=== PATIENT | female | born 1965 | race Caucasian/White ===

== ENCOUNTER 2019-12-04 21:47 | Inpatient (IN) | payer OTHER ==
[2019-12-04 22:45] LABS: ALT (SGPT) 15 U/L (8-55); AST (SGOT) 19 U/L (5-34); Albumin 3.8 g/dL (3.5-5.0); Alkaline Phosphatase 226 U/L (40-110); Anion Gap 17 mmol/L (10-20); BUN (Urea Nitrogen) 47 mg/dL (9.8-20.1); Bilirubin, Total 0.5 mg/dL (0.2-1.2); Calc. Creatinine Clearance 0 mL/min (70-130); Calcium 8.5 mg/dL (7.8-10.44); Carbon Dioxide 19 mmol/L (22-29); Chloride 114 mmol/L (98-107); Estimated GFR-MDRD 28; Glucose 118 mg/dL (70-105); Potassium 5.3 mmol/L (3.5-5.1); Protein, Total 6.8 g/dL (6.0-8.3); Sodium 145 mmol/L (136-145)
[2019-12-04 22:46] LABS: #Basophils 0.1 thou/uL (0.0-0.2); #Eosinphils 0.1 thou/uL (0.0-0.7); #Monocytes 0.7 thou/uL (0.11-0.59); #Neutrophils 7.3 thou/uL (1.40-6.50); %Basophils 0.7 % (0.0-1.0); %Eosinophils 0.9 % (0.0-10.0); %Lymphocytes 11.1 % (21.0-51.0); %Monocytes 8.1 % (0.0-10.0); %Neutrophils 79.3 % (42.0-75.0); Anisocytosis SLIGHT = 6-15 cells (100X) (0-5/hpf); Hemoglobin 10.4 g/dL (12.0-16.0); MDiff Complete? YES; Mean Corpuscular HGB CONC 29.7 g/dL (32.0-36.0); Mean Corpuscular Hemoglobin 28.4 pg (27.0-31.0); Mean Corpuscular Volume 95.5 fL (78.0-98.0); Mean Platelet Volume 7.1 fL (7.4-10.4); Platelet Count 326 thou/uL (130-400); RBC Distribution Width 16.3 % (11.5-14.5); Red Blood Cell (RBC) Count 3.68 mill/uL (4.20-5.40); White Blood Cell (WBC) Count 9.2 thou/uL (4.8-10.8)
[2019-12-04] MEDS ORDERED: cefTRIAXone\\ROCEPHIN 2 GM VIAL ONE (23:33)
[2019-12-05] MEDS ORDERED: Dextrose 50% Abboject 50 ML SYRINGE SLOW IVP PRN (00:08)
[2019-12-05] MEDS ORDERED: Dextrose 5% in Water 1,000 ML IV PRN (00:08)
[2019-12-05] MEDS ORDERED: Ondansetron PF 4 MG/2 ML Vial IVP PRN (00:08)
[2019-12-05] MEDS ORDERED: Furosemide 100 MG/10 ML VIAL SLOW IVP SCH (00:30)
[2019-12-05] MEDS: Acetaminophen 325 MG TAB PO PRN ×2 (04:08→20:36)
[2019-12-05 04:53] LABS: ALT (SGPT) 14 U/L (8-55); AST (SGOT) 20 U/L (5-34); Albumin 3.4 g/dL (3.5-5.0); Alkaline Phosphatase 211 U/L (40-110); Anion Gap 15 mmol/L (10-20); BUN (Urea Nitrogen) 40 mg/dL (9.8-20.1); Bilirubin, Total 0.4 mg/dL (0.2-1.2); Calc. Creatinine Clearance 108 mL/min (70-130); Calcium 8.6 mg/dL (7.8-10.44); Carbon Dioxide 17 mmol/L (22-29); Chloride 115 mmol/L (98-107); Estimated GFR-MDRD 33; Globulin 3.2 g/dL (2.4-3.5); Glucose 87 mg/dL (70-105); Potassium 4.9 mmol/L (3.5-5.1); Protein, Total 6.6 g/dL (6.0-8.3); Sodium 142 mmol/L (136-145)
[2019-12-05 05:20] LABS: #Basophils 0.1 thou/uL (0.0-0.2); #Eosinphils 0.1 thou/uL (0.0-0.7); #Lymphocytes 1.4 thou/uL (1.20-3.40); #Monocytes 0.9 thou/uL (0.11-0.59); #Neutrophils 5.5 thou/uL (1.40-6.50); %Basophils 0.7 % (0.0-1.0); %Eosinophils 1.8 % (0.0-10.0); %Lymphocytes 17.1 % (21.0-51.0); %Monocytes 11.5 % (0.0-10.0); %Neutrophils 68.8 % (42.0-75.0); Hemoglobin 10.2 g/dL (12.0-16.0); Mean Corpuscular HGB CONC 29.9 g/dL (32.0-36.0); Mean Corpuscular Hemoglobin 28.7 pg (27.0-31.0); Mean Platelet Volume 7.4 fL (7.4-10.4); Platelet Count 306 thou/uL (130-400); RBC Distribution Width 16.5 % (11.5-14.5); Red Blood Cell (RBC) Count 3.55 mill/uL (4.20-5.40)
[2019-12-05] MEDS: Piperacillin/Tazobactam 3.375 GM in Sodium Chloride 0.9% 100 ML IVPB SCH ×3 (06:55→18:31)
[2019-12-05] MEDS ORDERED: Promethazine HCl 25 MG, Admixture Fee 1 EACH in Sodium Chloride 0.9% 50 ML IVPB SCH (07:00)
[2019-12-05 07:54] LABS: Bacteria/HPF None Seen HPF (None Seen); Bilirubin Negative (Negative); Blood, Urine Negative (Negative); Clarity Clear (Clear); Glucose, Urine (Dipstick) 50 mg/dL (Negative); Leukocyte Negative Leu/uL (Negative); Nitrite Negative (Negative); Protein, Urine (Dipstick) Negative (Neg-Trace); RBC/HPF None Seen HPF (0-3); Squamous Epithelial 0-3 HPF (0-3); Urobilinogen Normal mg/dL (Less than 2); WBC/HPF 0-3 HPF (0-3)
--- NOTE | 2019-12-05 07:55 | RAD ---
CHEST 1 VIEW: HISTORY: Shortness of breath. COMPARISON: Radiograph of same day. FINDINGS: Heart size is enlarged. Moderate right layering pleural effusion. Mild background pulmonary edema. No pneumothorax. IMPRESSION: Findings of mildly compensating congestive heart failure. POS: HOME
--- NOTE | 2019-12-05 08:14 | ULT ---
ULTRASOUND RIGHT LOWER EXTREMITY VENOUS DOPPLER: HISTORY: Swelling, redness, and pain. COMPARISON: None. FINDINGS: Real-time, holland scale, color Doppler, and spectral analysis of the right lower extremity venous syste m was performed. The common femoral, femoral proximal portion, greater saphenous and deep femoral vei n, as well as popliteal and posterior tibial veins were interrogated. There is moderate superficial soft tissue swelling. Normal flow, augmentation, and compression. IMPRESSION: No deep venous thrombosis. POS: HOME
[2019-12-05] MEDS ORDERED: Non-Formulary Item 1 EACH (Insulin Detemir 100 Units/Ml [Levemir] 50 UNIT) SC SCH (09:00)
[2019-12-05] MEDS: Enoxaparin Sodium 30 MG/0.3 ML SYRINGE SC SCH (09:28)
[2019-12-05] MEDS: FLUoxetine HCl 20 MG CAP PO SCH (09:28)
[2019-12-05] MEDS: Metoprolol Tartrate 25 MG TAB PO SCH ×2 (09:28→20:36)
--- NOTE | 2019-12-05 09:32 | HP ---
SOURCE OF THE HISTORY: From the patient and patient's daughter who was at the bedside and history is reliable. CHIEF COMPLAINT: "My mother has been having redness of the right leg with weeping for the last more than one week." HISTORY OF PRESENT ILLNESS: This is a 53-year-old morbidly obese female patient who has history of essential hypertension, diabetes mellitus, morbid obesity, and depression, and patient has been compliant with her medications. The patient never had any cardiovascular history in the past. The patient had diabetic left foot with osteomyelitis, for which the patient had resection of the toe, and subsequently, the wound involving the left foot has been completely healed. Otherwise, the patient had an angioplasty to the left lower extremity in the past because of peripheral artery disease. The patient has been having gradually worsening erythema involving the right lower extremity for more than a week associated with gradually worsening bilateral lower extremity edema associated with 6-pillow orthopnea. Subsequently, the patient started having significant weeping and superficial blisters involving the right lower extremity, and because of gradual worsening of these symptoms involving the right lower extremity, the patient's family has decided for the patient to come to the emergency department today. The patient's daughter noticed that the patient has been having gradually worsening edema involving the both lower extremities associated with a 6-pillow orthopnea and dyspnea at rest without any obvious chest pain, travel, or fever. The patient had evaluation in the emergency department, the patient has slightly elevated D-dimer and beta-natriuretic peptide. Otherwise, the patient has mild worsening of renal function. PAST MEDICAL HISTORY: 1. Hypertension. 2. Diabetes mellitus. 3. Depression. 4. Obesity. PAST SURGICAL HISTORY: 1. Left toe partial amputation. 2. Repair of the left meniscal tear. 3. Balloon angioplasty of the left lower extremity in the past. ALLERGIES: NONE. CURRENT MEDICATIONS: At home, please see the reconciliation sheet. SOCIAL HISTORY: Lives with her family, and the patient is bed-bound for the last one year. Otherwise, never had any history of tobacco abuse, alcohol abuse, or recreational drug abuse. FAMILY HISTORY: Significant for myocardial infarction, stroke, diabetes mellitus, and hypertension in her mother. Father had COPD. REVIEW OF SYSTEMS: As mentioned in the history of present illness. Apart from it, 14-point of review of systems has been conducted and not contributory. PHYSICAL EXAMINATION: GENERAL: Elderly female patient, lying on the stretcher comfortably, not appears to be in any cardiopulmonary distress. Mucous membranes are pale and mild moist. Acyanotic. Anicteric. No finger clubbing. The patient has bilateral lower extremity pitting edema, but no lymphadenopathy. HEAD: Atraumatic and normocephalic. ENT: Neck is supple. No jugular venous distention. No thyromegaly or carotid bruit. EYES: Extraocular movements are intact. Pupils are equal, round, reactive to light bilaterally. Accommodation reflex present. CHEST: Bilaterally symmetrical. Trachea is midline. Air entry is diminished at both bases with bilateral basilar respiratory rhonchi. No wheezing. CARDIOVASCULAR: Normal intensity of S1 and S2 without S3. No murmurs are appreciated. ABDOMEN: Soft without any distention. Nontender. No organomegaly. Bowel sounds normoactive. DIAMOND CLEAVER: The patient is alert, awake, oriented to time, place, person. Cranial nerves 2 through 12 are intact. No focal motor or sensory deficits. EXTREMITIES: The patient has a significant edema involving the both lower extremities, which is pitting, but otherwise the patient has boot to the left foot and distal left leg. The patient has significant erythema involving the right leg and dorsum of the right lower extremity with superficial fluid-filled blisters and significant weeping, but otherwise, the dorsalis pedis pulses were not palpable on both feet. LABORATORY DATA: WBC 9.2, hemoglobin 10.4, hematocrit 35.2, platelets 326. D-dimer 0.94. Sodium 145, potassium 5.3, chloride 114, bicarb 19, anion gap 17, BUN 47, creatinine 1.8, glucose 118, calcium 8.4, total bilirubin 0.4, AST 19, ALT 15, alkaline phosphatase 226. Troponin 0.020. BNP 271. Total protein 6.8, albumin 3.8, globulin 3.0. Chest x-ray reveals elevated right hemidiaphragm. Otherwise significant for pulmonary vascular congestion and cardiomegaly. ASSESSMENT: 1. Right lower extremity cellulitis. 2. Fluid overload. 3. Acute on possible stage 3 chronic kidney disease. 4. Possible undiagnosed obstructive sleep apnea. 5. Anemia. 6. Mild hyperkalemia. 7. Essential hypertension. 8. Diabetes mellitus. 9. Depression. 10. Morbid obesity. PLAN: The patient has cellulitis involving the right lower extremity, but no obvious evidence of sepsis. Keep the patient on intravenous vancomycin and Zosyn empirically, but otherwise, we will ask the Wound Care to evaluate the patient as the patient has significant weeping from the right lower extremity skin surface. The patient has signs and symptoms of fluid overload manifested by gradually worsening bilateral lower extremity pitting edema associated with orthopnea and currently dyspnea at rest. The patient is not having any respiratory failure or hypoxia at this point of time, but the patient's chest x-ray reveals a pulmonary vascular congestion consistent with fluid overload. The patient never had any cardiovascular history, but the patient has morbid obesity with significant snoring during sleep, and probably the patient has high chances of obstructive sleep apnea, which is not diagnosed leading to right heart failure. Obtain 2D echocardiogram. Keep the patient on fluid restriction to 1.5 L per day. Lasix 80 mg intravenously one dose now and monitor renal function tomorrow. Monitor strict input and output. Obtain kidney ultrasound as the patient has minimal worsening of renal function, but currently clinically the patient appears fluid overloaded, so we will give one dose of intravenous Lasix 80 mg and monitor renal function tomorrow. Resume home medications, but avoid Norvasc because of bilateral lower extremity edema and start the patient on beta shraddha for now as the patient cannot be a candidate for any EMMETT inhibitors or angiotensin receptor shraddha because of minimal worsening of renal function. Resume long-acting insulin and monitor the patient with a medium dose of lispro insulin sliding scale coverage. Job ID: [id number]
--- NOTE | 2019-12-05 11:48 | ULT ---
BILATERAL RENAL ULTRASOUND COMPLETE: HISTORY: Renal failure. COMPARISON: 12/05/2013. FINDINGS: Exam is significantly limited because of large body habitus and patient being unable to suspend respi ration. The right kidney is not adequately visualized. The left kidney measures 10.5 x 5.2 x 5.2 cm but is also poorly seen. No evidence for overt left-sided renal hydronephrosis. The bladder is emp ty. The patient does have a Gooden. IMPRESSION: 1. Nonvisualized right kidney. 2. Poorly seen left kidney, but no overt renal hydronephrosis. POS: [facility]
--- NOTE | 2019-12-05 19:12 | PDOC.HOSPP ---
- Subjective Encounter Date: 12/05/19 Encounter Time: 12:00 Subjective: The patient reports feeling better. STates that her right leg was weeping and extremely painful. She also stated that she was short of breath. She feels her abdomen is not as distended and is more soft The patient reports being in a wheelchair for the past 7 years. - Objective Vital Signs & Weight: Vital Signs (12 hours) Temp Pulse Pulse Resp BP BP Pulse Ox 12/05/19 15:52 97.9 F 61 22 H 136/67 93 L 12/05/19 11:57 70 126/78 12/05/19 11:33 97.9 F 70 20 167/80 H 93 L 12/05/19 09:26 97.6 F 84 20 128/78 92 L Pulse Ox 12/05/19 15:52 12/05/19 11:57 95 12/05/19 11:33 12/05/19 09:26 Weight Admit Weight 385 lb 11.2 oz Weight 385 lb 11.2 oz I&O: 12/04/19 12/05/19 12/06/19 06:59 06:59 06:59 Intake Total 750 1150 Output Total 1400 1600 Balance -650 -450 Result Diagrams: 12/05/19 04:05 12/05/19 04:05 Additional Labs: Accuchecks 12/05/19 16:45 POC Glucose 124 H Hospitalist ROS - Review of Systems Constitutional: denies: fever, chills - Medication Medications: Active Medications Generic Name Dose Route Start Last Admin Trade Name Freq PRN Reason Stop Dose Admin Acetaminophen 650 mg 12/05/19 00:08 12/05/19 04:08 Tylenol PO 650 mg Q4H PRN Administration Headache/Fever/Mild Pain (1-3) Cholecalciferol 1,000 units 12/05/19 09:00 12/05/19 09:28 Vitamin D3 PO 1,000 units DAILY BRITTANY Administration Enoxaparin Sodium 30 mg 12/05/19 09:00 12/05/19 09:28 Lovenox SC 30 mg 0900 BRITTANY Administration Fluoxetine HCl 40 mg 12/05/19 09:00 12/05/19 09:28 Prozac PO 40 mg DAILY BRITTANY Administration Piperacillin Sod/Tazobactam 100 mls @ 200 mls/hr 12/05/19 06:00 12/05/19 18: 31 Sod 3.375 gm/ Sodium Chloride IVPB 100 mls Q6HR BRITTANY Administration Metoprolol Tartrate 25 mg 12/05/19 09:00 12/05/19 09:28 Lopressor PO 25 mg BID BRITTANY Administration Ondansetron HCl 4 mg 12/05/19 00:08 12/05/19 06:08 Zofran IVP 4 mg Q6H PRN Administration Nausea/Vomiting Sodium Chloride 10 ml 12/05/19 09:00 12/05/19 09:29 Flush - Normal Saline IVF 10 ml Q12HR BRITTANY Administration - Exam General Appearance: NAD, awake alert Eye: PERRL, anicteric sclera ENT: normocephalic atraumatic Neck: no JVD Heart: RRR, no murmur, no gallops, no rubs Respiratory: CTAB, no wheezes, no rales, no ronchi Gastrointestinal: soft, non-tender Gastrointestinal - other findings: distended abdomen, slightly firm to palpation Extremities: 2+ LE edema Extremities - other findings: right leg erythemma, warmth, tenderness Skin: normal turgor, no lesions, no rashes Hosp A/P - Plan ECHO: EF 50-55%, mild MR, sclerotic aortic valve, mild TR Chest X ray: mild CHF This is a 53 year old female presenting with cellulitis and CHF exacerbation #Acute hypoxic respiratory failure secondary to CHF exacerbation #Acute Kidney Injury - was given 80 mg IV lasix. Will give an additional 40 mg. ECHO Shows normal Ef - creatinine improved to 1.6. - UA normal - wean oxygen saturation to 92% Cellulitis - continue IV vancomycin and zosyn for now. Will consider switching to ceftriaxone tomorrow - wound culture Hyperkalemia - resolved
[2019-12-05] MEDS ORDERED: Furosemide 40 MG/4 ML VIAL SLOW IVP SCH (19:15)
[2019-12-05] MEDS: Insulin Glargine 50 UNITS in Pre-Filled Syringe 1 EACH SC SCH (20:34)
[2019-12-05] MEDS: Atorvastatin Calcium 40 MG TAB PO SCH (20:36)
[2019-12-06] MEDS: Piperacillin/Tazobactam 3.375 GM in Sodium Chloride 0.9% 100 ML IVPB SCH ×3 (00:36→11:40)
[2019-12-06] MEDS: HYDROcodone/Acetaminophen 5/325 mg Tablet PO PRN ×3 (03:18→17:24)
[2019-12-06 05:16] LABS: Hemoglobin 10.2 g/dL (12.0-16.0); Mean Corpuscular HGB CONC 29.6 g/dL (32.0-36.0); Mean Corpuscular Volume 94.7 fL (78.0-98.0); Mean Platelet Volume 7.1 fL (7.4-10.4); Platelet Count 342 thou/uL (130-400); RBC Distribution Width 16.6 % (11.5-14.5); Red Blood Cell (RBC) Count 3.63 mill/uL (4.20-5.40); White Blood Cell (WBC) Count 9.5 thou/uL (4.8-10.8)
[2019-12-06 05:21] LABS: Anion Gap 14 mmol/L (10-20); BUN (Urea Nitrogen) 47 mg/dL (9.8-20.1); Calc. Creatinine Clearance 84 mL/min (70-130); Calcium 8.7 mg/dL (7.8-10.44); Carbon Dioxide 24 mmol/L (22-29); Chloride 110 mmol/L (98-107); Estimated GFR-MDRD 25; Glucose 116 mg/dL (70-105); Sodium 142 mmol/L (136-145)
[2019-12-06] MEDS ORDERED: Furosemide 40 MG/4 ML VIAL SLOW IVP SCH (06:00)
[2019-12-06] MEDS: Metoprolol Tartrate 25 MG TAB PO SCH ×2 (09:03→22:03)
[2019-12-06] MEDS: FLUoxetine HCl 20 MG CAP PO SCH (09:03)
[2019-12-06] MEDS: Enoxaparin Sodium 30 MG/0.3 ML SYRINGE SC SCH (09:12)
[2019-12-06] MEDS ORDERED: Empagliflozin 25 MG TAB PO SCH (10:45)
--- NOTE | 2019-12-06 16:47 | PDOC.HOSPP ---
- Subjective Encounter Date: 12/06/19 Encounter Time: 13:00 Subjective: THe patient reports improvement in her leg pain and swelling. She feels her abd is still more distended than her baseline, however She denies chest pain. Has some mild SOB - Objective Vital Signs & Weight: Vital Signs (12 hours) Temp Pulse Pulse Pulse Resp BP BP 12/06/19 15:48 97.4 F L 55 L 20 12/06/19 11:37 97.5 F L 57 L 22 H 12/06/19 09:00 65 64 156/73 H 134/76 12/06/19 07:58 97.5 F L 64 20 BP Pulse Ox Pulse Ox Pulse Ox 12/06/19 15:48 166/80 H 92 L 12/06/19 11:37 130/72 94 L 12/06/19 09:00 93 L 91 L 12/06/19 07:58 118/59 L 92 L Weight Admit Weight 385 lb 11.2 oz Weight 392 lb 9.6 oz I&O: 12/05/19 12/06/19 12/07/19 06:59 06:59 06:59 Intake Total 750 2691 Output Total 1400 1800 Balance -650 891 Result Diagrams: 12/06/19 04:28 12/06/19 04:28 Additional Labs: Accuchecks 12/06/19 12/05/19 12/05/19 06:21 21:00 16:45 POC Glucose 112 H 133 H 124 H Hospitalist ROS - Review of Systems Constitutional: denies: fever, chills - Medication Medications: Active Medications Generic Name Dose Route Start Last Admin Trade Name Chris PRN Reason Stop Dose Admin Acetaminophen 650 mg 12/05/19 00:08 12/05/19 20:36 Tylenol PO 650 mg Q4H PRN Administration Headache/Fever/Mild Pain (1-3) Hydrocodone Bitart/Acetaminophen 1 tab 12/05/19 00:08 12/06/19 09:11 [place] 5/325 PO 1 tab Q4H PRN Administration Moderate Pain (4-6) Atorvastatin Calcium 40 mg 12/05/19 21:00 12/05/19 20:36 Lipitor PO 40 mg QPM BRITTANY Administration Cholecalciferol 1,000 units 12/05/19 09:00 12/06/19 09:03 Vitamin D3 PO 1,000 units DAILY BRITTANY Administration Enoxaparin Sodium 30 mg 12/05/19 09:00 12/06/19 09:12 Lovenox SC 30 mg 0900 BRITTANY Administration Fluoxetine HCl 40 mg 12/05/19 09:00 12/06/19 09:03 Prozac PO 40 mg DAILY BRITTANY Administration Piperacillin Sod/Tazobactam 100 mls @ 200 mls/hr 12/05/19 06:00 12/06/19 11: 40 Sod 3.375 gm/ Sodium Chloride IVPB 100 mls Q6HR BRITTANY Administration Insulin Glargine 50 units/ 0.5 mls @ 0 mls/hr 12/05/19 21:00 12/05/19 20:34 Miscellaneous Medication SC Not Given HS BRITTANY Vancomycin HCl 2 gm/ Sodium 500 mls @ 250 mls/hr 12/06/19 03:00 12/06/19 04: 05 Chloride IVPB 500 mls 0300 BRITTANY Administration Metoprolol Tartrate 25 mg 12/05/19 09:00 12/06/19 09:03 Lopressor PO 25 mg BID BRITTANY Administration Ondansetron HCl 4 mg 12/05/19 00:08 12/05/19 06:08 Zofran IVP 4 mg Q6H PRN Administration Nausea/Vomiting Sodium Chloride 10 ml 12/05/19 09:00 12/06/19 09:06 Flush - Normal Saline IVF 10 ml Q12HR BRITTANY Administration - Exam General Appearance: NAD, awake alert General - other findings: morbidly obese Eye: anicteric sclera ENT: normocephalic atraumatic, no oropharyngeal lesions Neck: no JVD Heart: RRR, no murmur, no gallops, no rubs Respiratory: CTAB, no wheezes, no rales, no ronchi, no tachypnea Gastrointestinal: soft, non-tender, non-distended, normal bowel sounds Gastrointestinal - other findings: abd more soft, not as firm but distended Extremities: 2+ LE edema Extremities - other findings: right LE erythema with sig improvement, slightly tender Neurological: cranial nerve grossly intact, normal sensation to touch, no focal deficits, no new deficit Hosp A/P - Plan ECHO: EF 50-55%, mild MR, sclerotic aortic valve, mild TR Chest X ray: mild CHF Renal US: poorly seen left kidney. Nonvisualized right kidney. No hydronephrosis This is a 53 year old female presenting with cellulitis and CHF exacerbation #Acute hypoxic respiratory failure secondary to CHF exacerbation #Acute Kidney Injury - was given 80 mg IV lasix+ 40 mg this morning . ECHO Shows normal Ef - creatinine worsened to 2.0 - will hold additional lasix for now Cellulitis -switch antibiotics to doxycycline and levaquin Hyperkalemia - potassium up to 6.0. EKG ordered. Kayexelate ordered. Will repeat BMP Anemia - Hb 10, check folate/B12 tomorrow
[2019-12-06 17:01] LABS: Anion Gap 17 mmol/L (10-20); BUN (Urea Nitrogen) 48 mg/dL (9.8-20.1); Calc. Creatinine Clearance 85 mL/min (70-130); Calcium 8.3 mg/dL (7.8-10.44); Carbon Dioxide 17 mmol/L (22-29); Chloride 111 mmol/L (98-107); Estimated GFR-MDRD 24; Glucose 182 mg/dL (70-105); Potassium 4.8 mmol/L (3.5-5.1); Sodium 140 mmol/L (136-145)
[2019-12-06] MEDS: HumaLOG 300 UNITS/3 ML VIAL SC PRN (17:39)
[2019-12-06] MEDS: Doxycycline 100 MG CAP PO SCH (22:02)
[2019-12-06] MEDS: Atorvastatin Calcium 40 MG TAB PO SCH (22:02)
[2019-12-06] MEDS: Amoxicillin/Potassium Clav 875 MG TAB PO SCH (22:02)
[2019-12-06] MEDS: Insulin Glargine 50 UNITS in Pre-Filled Syringe 1 EACH SC SCH (22:03)
[2019-12-07] MEDS: HYDROcodone/Acetaminophen 5/325 mg Tablet PO PRN ×3 (01:28→13:34)
[2019-12-07 06:28] LABS: Anion Gap 14 mmol/L (10-20); BUN (Urea Nitrogen) 52 mg/dL (9.8-20.1); Calc. Creatinine Clearance 90 mL/min (70-130); Calcium 8.5 mg/dL (7.8-10.44); Carbon Dioxide 21 mmol/L (22-29); Chloride 110 mmol/L (98-107); Estimated GFR-MDRD 26; Glucose 118 mg/dL (70-105); Potassium 4.5 mmol/L (3.5-5.1); Sodium 140 mmol/L (136-145)
[2019-12-07 07:03] LABS: Hemoglobin 10.6 g/dL (12.0-16.0); Mean Corpuscular HGB CONC 28.3 g/dL (32.0-36.0); Mean Corpuscular Hemoglobin 27.2 pg (27.0-31.0); Mean Platelet Volume 7.4 fL (7.4-10.4); Platelet Count 348 thou/uL (130-400); RBC Distribution Width 16.2 % (11.5-14.5); Red Blood Cell (RBC) Count 3.92 mill/uL (4.20-5.40); White Blood Cell (WBC) Count 8.3 thou/uL (4.8-10.8)
[2019-12-07] MEDS: Metoprolol Tartrate 25 MG TAB PO SCH ×2 (08:34→22:12)
[2019-12-07] MEDS: FLUoxetine HCl 20 MG CAP PO SCH (08:35)
[2019-12-07] MEDS: Amoxicillin/Potassium Clav 875 MG TAB PO SCH ×2 (08:35→22:12)
[2019-12-07] MEDS: Enoxaparin Sodium 30 MG/0.3 ML SYRINGE SC SCH (08:35)
[2019-12-07] MEDS: Folic Acid 1 MG TAB PO SCH (08:35)
[2019-12-07] MEDS: Doxycycline 100 MG CAP PO SCH ×2 (08:35→22:12)
[2019-12-07] MEDS ORDERED: Empagliflozin 25 MG TAB PO SCH (09:00)
[2019-12-07] MEDS ORDERED: Racepinephrine 2.25% 0.5 ML NEB NEB SCH (09:45)
--- NOTE | 2019-12-07 16:53 | RAD ---
Chest one view HISTORY: Dyspnea. Pleural effusion. COMPARISON: 12/04/2019. FINDINGS: Vertex silhouette remains magnified and enlarged. Pulmonary vasculature is engorged with wi despread reticulonodular interstitial prominence in patchy bilateral perihilar and bibasilar infiltrates, right greater than left. Blunting of the right lateral costophrenic angle with the appea salma of pleural fluid is similar to the previous exam. No lobar consolidation or evidence of pneumothorax. IMPRESSION : Small amount right pleural fluid, pulmonary edema, and other findings are stable.
--- NOTE | 2019-12-07 18:31 | PDOC.HOSPP ---
- Subjective Encounter Date: 12/07/19 Encounter Time: 10:00 Subjective: The patient is still SOB. She reports hearing a wheeze, noted to be coming more from her neck. Patient denies history of asthma, COPD. Denies history of KEREN, she does snore at night, but doesn't stop breathing. - Objective Vital Signs & Weight: Vital Signs (12 hours) Temp Pulse Pulse Resp BP BP BP 12/07/19 15:40 96.4 F L 58 L 20 134/83 12/07/19 13:33 97.6 F 12/07/19 12:00 95.9 F L 61 20 130/86 12/07/19 11:42 60 168/103 H 130/86 12/07/19 10:26 51 L 16 12/07/19 09:45 174/111 H 12/07/19 08:00 97.5 F L 59 L 14 195/108 H Pulse Ox 12/07/19 15:40 94 L 12/07/19 13:33 12/07/19 12:00 95 12/07/19 11:42 12/07/19 10:26 12/07/19 09:45 92 L 12/07/19 08:00 95 Weight Admit Weight 385 lb 11.2 oz Weight 391 lb 12.8 oz I&O: 12/06/19 12/07/19 12/08/19 06:59 06:59 06:59 Intake Total 2691 1310 420 Output Total 1800 300 150 Balance 891 1010 270 Result Diagrams: 12/07/19 05:36 12/07/19 05:37 Additional Labs: Accuchecks 12/07/19 12/07/19 12/07/19 17:40 11:05 05:41 POC Glucose 142 H 135 H 121 H 12/06/19 21:29 POC Glucose 165 H Hospitalist ROS - Review of Systems Constitutional: denies: fever, chills - Medication Medications: Active Medications Generic Name Dose Route Start Last Admin Trade Name Freq PRN Reason Stop Dose Admin Acetaminophen 650 mg 12/05/19 00:08 12/05/19 20:36 Tylenol PO 650 mg Q4H PRN Administration Headache/Fever/Mild Pain (1-3) Hydrocodone Bitart/Acetaminophen 1 tab 12/05/19 00:08 12/07/19 13:34 [place] 5/325 PO 1 tab Q4H PRN Administration Moderate Pain (4-6) Amoxicillin/Clavulanate Potassium 875 mg 12/06/19 21:00 12/07/19 08:35 Augmentin PO 875 mg Q12HR [facility] Administration Atorvastatin Calcium 40 mg 12/05/19 21:00 12/06/19 22:02 Lipitor PO 40 mg QPM BRITTANY Administration Cholecalciferol 1,000 units 12/05/19 09:00 12/07/19 08:35 Vitamin D3 PO 1,000 units DAILY BRITTANY Administration Doxycycline Hyclate 100 mg 12/06/19 21:00 12/07/19 08:35 Vibramycin PO 100 mg BID [facility] Administration Enoxaparin Sodium 30 mg 12/05/19 09:00 12/07/19 08:35 Lovenox SC 30 mg 0900 [facility] Administration Fluoxetine HCl 40 mg 12/05/19 09:00 12/07/19 08:35 Prozac PO 40 mg DAILY BRITTANY Administration Folic Acid 1 mg 12/07/19 09:00 12/07/19 08:35 Folvite PO 1 mg DAILY BRITTANY Administration Insulin Glargine 50 units/ 0.5 mls @ 0 mls/hr 12/05/19 21:00 12/06/19 22:03 Miscellaneous Medication SC 0.5 mls HS [facility] Administration Insulin Human Lispro 0 units 12/05/19 00:08 12/06/19 17:39 Humalog SC 2 units .MODERATE SLIDING SC PRN Administration Moderate Correctional Scale Metoprolol Tartrate 25 mg 12/05/19 09:00 12/07/19 08:34 Lopressor PO 25 mg BID BRITTANY Administration Ondansetron HCl 4 mg 12/05/19 00:08 12/05/19 06:08 Zofran IVP 4 mg Q6H PRN Administration Nausea/Vomiting Sodium Chloride 10 ml 12/05/19 09:00 12/07/19 08:36 Flush - Normal Saline IVF 10 ml Q12HR [facility] Administration - Exam General Appearance: NAD, awake alert General - other findings: morbidly obese Eye: PERRL, anicteric sclera ENT: normocephalic atraumatic, no oropharyngeal lesions ENT - other findings: expiratory wheezing heard Neck: no JVD Heart: RRR, no murmur, no gallops, no rubs Respiratory: CTAB, no wheezes, no rales Respiratory - other findings: pt using pursed lip breathing Gastrointestinal: soft, non-tender, non-distended, normal bowel sounds Extremities: no cyanosis, no clubbing Extremities - other findings: right lower extremity erythema, not warm, mildly tender Skin: normal turgor, no lesions, no rashes Neurological: cranial nerve grossly intact, normal sensation to touch, no focal deficits, no new deficit Musculoskeletal: normal tone, normal strength, no muscle wasting Hosp A/P - Plan ECHO: EF 50-55%, mild MR, sclerotic aortic valve, mild TR Chest X ray: mild CHF Renal US: poorly seen left kidney. Nonvisualized right kidney. No hydronephrosis This is a 53 year old female presenting with cellulitis, pleural effusions #Acute hypoxic respiratory failure secondary to right sided pleural effusion - was given 80 mg IV lasix+ 40 mg initially. Further lasix held due to HERNESTO. ECHO Shows normal Ef - CXR shows moderate right pleural effusion 12/06. Creatinine improved to 1.98 holding lasix but given she is still hypoxic will order lower dose of 20 mg. Consult pulmonary for thoracentesis #Expiratory stridor - CT neck done today shows per radiology prevertebral soft tissue swelling extensive. There is concern for infection. Final report pending - will obtain ENT consult - continue augmentin Cellulitis -Was on IV vancomycin and zosyn with significant improvement in erythema and swelling - wound culture shows enterococcus. Sensitivites pending - continue doxycycyline and augmentin for now #Acute Kidney Injury - initially creatinine improved with lasix, but then worsened. Improved again to 1.98. UA normal. Renal US shows no hydronephrosis - will continue to monitor, trial of another dose of IV lasix Hyperkalemia -resolved after kayexelate and holding further lasix Folate deficiency Anemia - Hb 10, folate level 5. - started folate supplementeation Dispo: pulm and ENT consult Code status: full code
[2019-12-07] MEDS ORDERED: Furosemide 20 MG/2 ML VIAL SLOW IVP SCH (18:45)
[2019-12-07] MEDS: Albuterol Sulfate 1.25 MG/3 ML NEB NEB PRN (19:29)
--- NOTE | 2019-12-07 21:52 | CT ---
EXAM: NONCONTRAST SOFT TISSUE NECK CT: 12/07/19 HISTORY: Expiratory stridor. Evaluate for obstruction. Shortness of breath. Patient feels like something is ca ught in her throat. COMPARISON: None. FINDINGS: Limited evaluation due to lack of IV contrast. Visualized orbits and brain parenchyma do not demonstr ate an acute abnormality. Mucous retention cyst in the right maxillary sinus. Limited evaluation of the alimentary canal by the lack of IV contrast administration. No obvious mass es in the oral cavity. Midline fatty raphae of the tongue appears to be preserved. Epiglottis has a n ormal caliber. Pre-epiglottic fat is preserved. There is marked edema and fluid involving the prevertebral space. This edema starts at the base of th e skull and extends inferiorly to the C5 level. No obvious gas is appreciated. Grossly, the great vessels of the neck appear to be symmetric. There is medial deviation of both inte rnal carotid arteries with mass effect upon the posterior hypopharynx. No evidence of lymphadenopathy by size criteria. Symmetric attenuation of the parotid and submandibular glands. Mildly heterogeneous thyroid gland. Upper mediastinum does not demonstrate an acute abnormality. Bilateral pleural effusion, right greate r than left. Patchy opacities in the lung parenchyma which may represent edema or infiltrate. There i s diffuse edema involving the soft tissue structures suggesting possible anasarca. There is narrowing of the hypopharynx and supraglottic airway. Cervical spine vertebral body heights appear to be main tained. No obvious fractures. There is grade I anterolisthesis of C3 upon C4 and C4 upon C5. There ar e varying degrees of central canal stenosis and foraminal narrowing due to degenerative change. IMPRESSION: Marked prevertebral soft tissue swelling without obvious gas/air. The possibility of a developing inf ected fluid collection cannot be excluded. There does appear to be narrowing of the hypopharynx and s upraglottic airway secondary to the aforementioned prevertebral soft tissue swelling. ENT consultatio n is recommended. Results of the findings were conveyed to Dr. Kate via [employer] connect 12/07/19 at 5:1 8 p.m. Code CR POS: PPP
[2019-12-07] MEDS: Insulin Glargine 50 UNITS in Pre-Filled Syringe 1 EACH SC SCH (22:11)
[2019-12-07] MEDS: Atorvastatin Calcium 40 MG TAB PO SCH (22:12)
[2019-12-08] MEDS: HYDROcodone/Acetaminophen 5/325 mg Tablet PO PRN ×4 (02:26→21:20)
[2019-12-08 06:07] LABS: Anion Gap 14 mmol/L (10-20); BUN (Urea Nitrogen) 50 mg/dL (9.8-20.1); Calc. Creatinine Clearance 102 mL/min (70-130); Calcium 8.5 mg/dL (7.8-10.44); Carbon Dioxide 21 mmol/L (22-29); Chloride 110 mmol/L (98-107); Estimated GFR-MDRD 30; Glucose 123 mg/dL (70-105); Magnesium 2.3 mg/dL (1.6-2.6); Potassium 4.1 mmol/L (3.5-5.1); Sodium 141 mmol/L (136-145)
[2019-12-08] MEDS: Enoxaparin Sodium 30 MG/0.3 ML SYRINGE SC SCH (09:22)
[2019-12-08] MEDS: Amoxicillin/Potassium Clav 875 MG TAB PO SCH ×2 (09:23→21:20)
[2019-12-08] MEDS: Doxycycline 100 MG CAP PO SCH ×2 (09:23→21:20)
[2019-12-08] MEDS: FLUoxetine HCl 20 MG CAP PO SCH (09:23)
[2019-12-08] MEDS: Folic Acid 1 MG TAB PO SCH (09:23)
[2019-12-08] MEDS: Metoprolol Tartrate 25 MG TAB PO SCH ×2 (09:25→21:26)
--- NOTE | 2019-12-08 09:59 | RAD ---
Exam: Chest one view HISTORY:Reevaluate pleural effusion Comparison: 12/07/2019 FINDINGS: Cardiac silhouette:Cardiomegaly Aorta: Unremarkable Pulmonary vessels: Normal Costophrenic angles: Persistent right-sided pleural effusion LUNGS: Persistent parenchymal changes in the right lung Pneumothorax: None Osseous abnormalities: None IMPRESSION: No significant interval change. Stable pleural and parenchymal changes in the right hemit horax.
[2019-12-08] MEDS: Albuterol Sulfate 1.25 MG/3 ML NEB NEB PRN (10:18)
[2019-12-08] MEDS ORDERED: Furosemide 20 MG/2 ML VIAL SLOW IVP SCH (10:30)
[2019-12-08] MEDS: HumaLOG 300 UNITS/3 ML VIAL SC PRN ×2 (11:30→17:37)
--- NOTE | 2019-12-08 16:05 | PQF ---
JUNITO MARTINEZ, [facility] [id number] CLINICAL DOCUMENTATION IMPROVEMENT CLARIFICATION FORM: ICD-10 Updated PLEASE DO AN ADDENDUM TO THE PROGRESS NOTE WITH ANY DOCUMENTATION UPDATES OR ADDITIONS AND CARRY THROUGH TO DC SUMMARY. THANK YOU. DATE: 12/08/2019 ATTN:DR. FLORES Please exercise your independent, professional judgment in responding to the clarification form. Clinical indicators are provided on the bottom of this form for your review. Please check appropriate box(s): ACUTE CONGESTIVE HEART FAILURE: B. TYPE [ ] Systolic / HFrEF [ X ] Diastolic / HFpEF [ ] Combined Systolic / Diastolic [ ] Hypertensive Kidney Disease [ ] Other diagnosis [ ] Unable to determine In addition, please specify: Present on Admission (POA): [ X ] Yes [ ] No [ ] Unable to determine For continuity of documentation, please document condition throughout progress notes and discharge summary. Thank You. CLINICAL INDICATORS - SIGNS / SYMPTOMS / LABS / RESULTS AND LOCATION IN EMR 12/03 BNP 271.2 12/03 CXR : FINDINGS OF MILDLY COMPENSATING CONGESTIVE HEART FAILURE 12/04 H&P (ACHANTA) THE PATIENT HAS SIGNS AND SYMPTOMS OF FLUID OVERLOAD MANIFESTED BY GRADUALLY WORSENING BILATERAL LOWER EXTREMITY PITTING EDEMA ASSOCIATED WITH ORTHOPNEA AND CURRENTLY DYSPNEA AT REST. 12/04 ECHO : EF IS VISUALLY ESTIMATED AT 50-55 %, MITRAL REGURGITATION IS PRESENT , THE AORTIC VALVE IS SCLEROTIC, MILD TRICUSPID REGURGITATION. 12/04, 12/05 PN (TRAVIS) ACUTE HYPOXIC RESPIRATORY FAILURE SECONDARY TO CHF EXACERBATION 12/06 PN (TRAVIS) ACUTE HYPOXIC RESPIRATORY FAILURE SECONDARY TO RT SIDE PLEURAL EFFUSION. RISK: DX PLEURAL EFFUSION, ACUTE HYPOXIC RESP FAILURE (PN/TRAVIS) 12/06 TREATMENT SUPPLEMENTAL OXYGEN (12/04 - PRESENT) LASIX IV (12/06, 12/07) THANK YOU! ADELINE (This form is maintained as a part of the permanent medical record) 2014 [email or web address]. All Rights Reserved [email or web address] HOSPITALMariah
--- NOTE | 2019-12-08 17:54 | PDOC.HOSPP ---
- Subjective Encounter Date: 12/08/19 Encounter Time: 16:00 Subjective: THe patient is doing slightly better. She feels less SOB. She reports abd distension has improved some. No significant pain on RLE - Objective Vital Signs & Weight: Vital Signs (12 hours) Temp Pulse Pulse Resp BP BP Pulse Ox 12/08/19 17:40 97.9 F 12/08/19 15:06 96.6 F L 57 L 18 133/63 97 12/08/19 14:04 58 L 176/81 H 12/08/19 12:40 97.3 F L 12/08/19 11:35 96.0 F L 59 L 20 144/63 H 95 12/08/19 07:27 96.6 F L 49 L 14 123/63 96 Weight Admit Weight 385 lb 11.2 oz Weight 390 lb 4.8 oz I&O: 12/07/19 12/08/19 12/09/19 06:59 06:59 06:59 Intake Total 1310 500 270 Output Total 300 1100 275 Balance 1010 -600 -5 Result Diagrams: 12/07/19 05:36 12/08/19 05:36 Additional Labs: Accuchecks 12/08/19 12/08/19 12/08/19 16:50 10:27 05:58 POC Glucose 175 H 159 H 121 H 12/07/19 19:56 POC Glucose 176 H Hospitalist ROS - Review of Systems Constitutional: denies: fever, chills - Medication Medications: Active Medications Generic Name Dose Route Start Last Admin Trade Name Freq PRN Reason Stop Dose Admin Acetaminophen 650 mg 12/05/19 00:08 12/05/19 20:36 Tylenol PO 650 mg Q4H PRN Administration Headache/Fever/Mild Pain (1-3) Hydrocodone Bitart/Acetaminophen 1 tab 12/05/19 00:08 12/08/19 17:36 Burr 5/325 PO 1 tab Q4H PRN Administration Moderate Pain (4-6) Albuterol Sulfate 1.25 mg 12/07/19 15:55 12/08/19 10:18 Albuterol Sulfate NEB 1.25 mg [id number] PRN Administration Wheezing Amoxicillin/Clavulanate Potassium 875 mg 12/06/19 21:00 12/08/19 09:23 Augmentin PO 875 mg Q12HR BRITTANY Administration Atorvastatin Calcium 40 mg 12/05/19 21:00 12/07/19 22:12 Lipitor PO 40 mg QPM BRITTANY Administration Cholecalciferol 1,000 units 12/05/19 09:00 12/08/19 09:23 Vitamin D3 PO 1,000 units DAILY BRITTANY Administration Doxycycline Hyclate 100 mg 12/06/19 21:00 12/08/19 09:23 Vibramycin PO 100 mg BID BRITTANY Administration Fluoxetine HCl 40 mg 12/05/19 09:00 12/08/19 09:23 Prozac PO 40 mg DAILY BRITTANY Administration Folic Acid 1 mg 12/07/19 09:00 12/08/19 09:23 Folvite PO 1 mg DAILY BRITTANY Administration Insulin Glargine 50 units/ 0.5 mls @ 0 mls/hr 12/05/19 21:00 12/07/19 22:11 Miscellaneous Medication SC 0.5 mls HS BRITTANY Administration Insulin Human Lispro 0 units 12/05/19 00:08 12/08/19 17:37 Humalog SC 2 units .MODERATE SLIDING SC PRN Administration Moderate Correctional Scale Metoprolol Tartrate 25 mg 12/05/19 09:00 12/08/19 09:25 Lopressor PO Not Given BID [facility] Ondansetron HCl 4 mg 12/05/19 00:08 12/05/19 06:08 Zofran IVP 4 mg Q6H PRN Administration Nausea/Vomiting Sodium Chloride 10 ml 12/05/19 09:00 12/08/19 09:22 Flush - Normal Saline IVF 10 ml Q12HR BRITTANY Administration - Exam General Appearance: NAD, awake alert Eye: PERRL, anicteric sclera ENT: normocephalic atraumatic, no oropharyngeal lesions ENT - other findings: exp stridor improved some Neck: no JVD Heart: RRR, no murmur, no gallops, no rubs Respiratory: CTAB, no wheezes, no rales, no ronchi Gastrointestinal: soft, non-tender Gastrointestinal - other findings: morbidly obese. Stretch arriaga on skin. Not as firm Extremities: no cyanosis, 2+ LE edema Extremities - other findings: erythema on RLE, not warm, nontender Neurological: cranial nerve grossly intact, normal sensation to touch, no focal deficits, no new deficit Hosp A/P - Plan ECHO: EF 50-55%, mild MR, sclerotic aortic valve, mild TR Chest X ray: mild CHF Renal US: poorly seen left kidney. Nonvisualized right kidney. No hydronephrosis This is a 53 year old female presenting with cellulitis, pleural effusions #Acute hypoxic respiratory failure secondary to right sided pleural effusion - was given 80 mg IV lasix+ 40 mg initially. ECHO Shows normal Ef - CXR shows moderate right pleural effusion 12/06. Creatinine improved to 1.98 holding lasix, but resumed 12/06 given persistent effusion - gave 20 mg IV lasix this am, will order additional 40 mg - repeat xray tomorrow - pulm consulted, will not do thoracentesis at this time #Expiratory stridor - CT neck done today shows per radiology prevertebral soft tissue swelling extensive. There is concern for infection. Final report pending - ENT evaluated patient and did NPL. NO pathology noted per ENT Cellulitis -Was on IV vancomycin and zosyn with significant improvement in erythema and swelling - wound culture shows enterococcus. Sensitivites pending - continue doxycycyline and augmentin day 4 of antibiotics #Acute Kidney Injury - improving to 1.7 after some IV lasix. Will give additional 40 mg. REpeat BMP afterwards Hyperkalemia -resolved after kayexelate and holding further lasix Folate deficiency Anemia - Hb 10, folate level 5. - started folate supplementeation Dispo: pending improvement in hypoxia Code status: full code
[2019-12-08] MEDS ORDERED: Furosemide 40 MG/4 ML VIAL SLOW IVP SCH (18:00)
--- NOTE | 2019-12-08 19:30 | CON ---
DATE OF CONSULTATION: 12/08/2019 HISTORY OF PRESENT ILLNESS: Annabel Davila is a 53-year-old female. She is 5 feet 4 inches and 390 pounds. She presented with complaints of right leg swelling and redness. I was consulted for an abnormal x-ray. She has had wheezing, she says for 2 weeks. She has no history of asthma. 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 She is bed bound, does not ambulate. SOCIAL HISTORY: She is a nonsmoker and nondrinker. FAMILY HISTORY: Negative for lung disease in an early age. Father did have COPD. There is a history of vascular disease, diabetes, and hypertension. REVIEW OF SYSTEMS: Otherwise negative. PHYSICAL EXAMINATION: GENERAL: She is in no distress. She does have inspiratory and expiratory noise consistent with an upper airway abnormality. She is extremely obese. VITAL SIGNS: She is afebrile. Heart rate is 59, respiratory rate is 20, oximetry is 95% on 2 L, and blood pressure is 144/63. CHEST: As mentioned, she is not stridorous, but she makes noise on inspiration and expiration that is consistent with narrowing of her upper airway. LUNGS: Clear. HEART: Regular rhythm. ABDOMEN: Soft. EXTREMITIES: Erythema of right lower extremity is still present, but she says it is improving. LABORATORY DATA: White count 8.3, hemoglobin 10.6, and platelets 348. Sodium 141, potassium 4.1, chloride 110, bicarb 21, BUN 50, and creatinine 1.74. The creatinine was 2.[address] Neck CT shows paraspinous inflammation. IMPRESSION AND PLAN: Inspiratory and expiratory noise created by paraspinous inflammation that has led to narrowing of already narrow upper airway secondary to her obesity. I would wonder ,given her cellulitis, if she did not have a staphylococcal paraspinous abscess,.She is on antimicrobial therapy.. Infectious Disease input would be reasonable. Her obesity may preclude magnetic resonance imaging. Chest radiograph is hazy at the right base, but she is so obese, so good radiograph cannot be performed. I do not have a needle long enough to get into her pleural space at this point, and I am not convinced that she has a pleural effusion. I would simply recommend repeating a chest x-ray in 1 to 2 months. The paraspinous issues and the cellulitis in her leg need to be addressed. Please re-consult this if indicated. Her bedridden state makes long-term survival very unlikely. This is a 50 min consult with greater than 50% of the time spent on unit with coordination of care. Job ID: [id number] MTDD
[2019-12-08] MEDS: Atorvastatin Calcium 40 MG TAB PO SCH (21:23)
[2019-12-08] MEDS: Insulin Glargine 50 UNITS in Pre-Filled Syringe 1 EACH SC SCH (21:23)
[2019-12-09] MEDS: Folic Acid 1 MG TAB PO SCH (08:54)
[2019-12-09] MEDS: Amoxicillin/Potassium Clav 875 MG TAB PO SCH ×2 (08:55→21:07)
[2019-12-09] MEDS: FLUoxetine HCl 20 MG CAP PO SCH (08:55)
[2019-12-09] MEDS: Doxycycline 100 MG CAP PO SCH ×2 (08:55→21:07)
[2019-12-09] MEDS: HYDROcodone/Acetaminophen 5/325 mg Tablet PO PRN ×2 (08:59→21:10)
--- NOTE | 2019-12-09 09:12 | PRG ---
DATE OF SERVICE: 12/09/2019 SUBJECTIVE: Annabel Davila remains stable. OBJECTIVE: VITAL SIGNS: She is afebrile, heart rate 62, respiratory rate 22, oximetry is 94%, blood pressure 129/63. No change in her exam. IMPRESSION: 1. Paraspinous inflammation in her cervical spine with left paraspinous abscess. We will consider consulting Infectious Disease. 2. Right pleural effusion, not a candidate for a tap given her size. It is unlikely if this is infected. Job ID: [id number]
[2019-12-09] MEDS: Metoprolol Tartrate 25 MG TAB PO SCH ×2 (09:17→21:08)
[2019-12-09 10:37] LABS: Hemoglobin 11.1 g/dL (12.0-16.0); Mean Corpuscular HGB CONC 29.6 g/dL (32.0-36.0); Mean Corpuscular Volume 94.4 fL (78.0-98.0); Mean Platelet Volume 7.1 fL (7.4-10.4); Platelet Count 354 thou/uL (130-400); RBC Distribution Width 16.2 % (11.5-14.5); Red Blood Cell (RBC) Count 3.96 mill/uL (4.20-5.40); White Blood Cell (WBC) Count 9.4 thou/uL (4.8-10.8)
[2019-12-09 11:04] LABS: Anion Gap 12 mmol/L (10-20); BUN (Urea Nitrogen) 47 mg/dL (9.8-20.1); Calc. Creatinine Clearance 113 mL/min (70-130); Carbon Dioxide 24 mmol/L (22-29); Chloride 111 mmol/L (98-107); Estimated GFR-MDRD 34; Glucose 81 mg/dL (70-105); Potassium 4.4 mmol/L (3.5-5.1); Sodium 143 mmol/L (136-145)
[2019-12-09] MEDS ORDERED: Metoprolol Tartrate 25 MG TAB PO SCH (12:00)
[2019-12-09] MEDS ORDERED: Furosemide 40 MG/4 ML VIAL SLOW IVP SCH ×2 (12:45→21:15)
--- NOTE | 2019-12-09 15:26 | PDOC.HOSPP ---
- Subjective Encounter Date: 12/09/19 Encounter Time: 11:00 Subjective: CC: hypoxia The patient feels better, still feels some shortness of breath laying down. No cough or chest pain. No fevers. Patient is non-ambulatory. She does not wear oxygen at home - Objective Vital Signs & Weight: Vital Signs (12 hours) Temp Pulse Pulse Pulse Pulse Resp BP 12/09/19 12:15 12/09/19 11:35 97.7 F 67 20 12/09/19 09:58 63 69 65 165/77 H 12/09/19 07:48 97.4 F L 62 22 H 12/09/19 03:29 97.5 F L 50 L 18 BP BP BP Pulse Ox Pulse Ox Pulse Ox 12/09/19 12:15 95 12/09/19 11:35 172/79 H 95 12/09/19 09:58 205/110 H 186/89 H 96 92 L 12/09/19 07:48 129/63 94 L 12/09/19 03:29 125/50 L 94 L Weight Admit Weight 385 lb 11.2 oz Weight 391 lb 4.8 oz I&O: 12/08/19 12/09/19 12/10/19 06:59 06:59 06:59 Intake Total 500 630 Output Total 1100 1225 Balance -600 -595 Result Diagrams: 12/09/19 10:20 12/09/19 10:20 Additional Labs: Accuchecks 12/09/19 12/09/19 12/08/19 10:42 05:28 20:27 POC Glucose 96 75 164 H 12/08/19 16:50 POC Glucose 175 H Hospitalist ROS - Review of Systems Constitutional: denies: fever, chills - Medication Medications: Active Medications Generic Name Dose Route Start Last Admin Trade Name Freq PRN Reason Stop Dose Admin Acetaminophen 650 mg 12/05/19 00:08 12/05/19 20:36 Tylenol PO 650 mg Q4H PRN Administration Headache/Fever/Mild Pain (1-3) Hydrocodone Bitart/Acetaminophen 1 tab 12/05/19 00:08 12/09/19 08:59 Otto 5/325 PO 1 tab Q4H PRN Administration Moderate Pain (4-6) Albuterol Sulfate 1.25 mg 12/07/19 15:55 12/08/19 10:18 Albuterol Sulfate NEB 1.25 mg [id number] PRN Administration Wheezing Amoxicillin/Clavulanate Potassium 875 mg 12/06/19 21:00 12/09/19 08:55 Augmentin PO 875 mg Q12HR BRITTANY Administration Atorvastatin Calcium 40 mg 12/05/19 21:00 12/08/19 21:23 Lipitor PO 40 mg QPM BRITTANY Administration Cholecalciferol 1,000 units 12/05/19 09:00 12/09/19 08:55 Vitamin D3 PO 1,000 units DAILY BRITTANY Administration Doxycycline Hyclate 100 mg 12/06/19 21:00 12/09/19 08:55 Vibramycin PO 100 mg BID BRITTANY Administration Fluoxetine HCl 40 mg 12/05/19 09:00 12/09/19 08:55 Prozac PO 40 mg DAILY BRITTANY Administration Folic Acid 1 mg 12/07/19 09:00 12/09/19 08:54 Folvite PO 1 mg DAILY BRITTANY Administration Insulin Glargine 50 units/ 0.5 mls @ 0 mls/hr 12/05/19 21:00 12/08/19 21:23 Miscellaneous Medication SC 0.5 mls HS BRITTANY Administration Insulin Human Lispro 0 units 12/05/19 00:08 12/08/19 17:37 Humalog SC 2 units .MODERATE SLIDING SC PRN Administration Moderate Correctional Scale Metoprolol Tartrate 25 mg 12/05/19 09:00 12/09/19 09:17 Lopressor PO Not Given BID [facility] Ondansetron HCl 4 mg 12/05/19 00:08 12/05/19 06:08 Zofran IVP 4 mg Q6H PRN Administration Nausea/Vomiting Sodium Chloride 10 ml 12/05/19 09:00 12/09/19 08:56 Flush - Normal Saline IVF 10 ml Q12HR BRITTANY Administration Sodium Chloride 10 ml 12/05/19 06:55 12/08/19 21:22 Flush - Normal Saline IVF 10 ml PRN PRN Administration Saline Flush - Exam General Appearance: NAD, awake alert Eye: PERRL, anicteric sclera ENT: normocephalic atraumatic, no oropharyngeal lesions Neck: supple, symmetric, no JVD Heart: RRR, no murmur, no gallops, no rubs Respiratory: no wheezes, no rales, no ronchi, normal chest expansion, no tachypnea, normal percussion Respiratory - other findings: diminished breath sounds Gastrointestinal: soft, non-tender, non-distended, normal bowel sounds Extremities - other findings: Legs 3+ edema. Weeping, mild blisters on right leg. No tenderness Neurological: cranial nerve grossly intact, normal sensation to touch, no focal deficits, no new deficit Hosp A/P - Plan ECHO: EF 50-55%, mild MR, sclerotic aortic valve, mild TR Chest X ray: mild CHF Renal US: poorly seen left kidney. Nonvisualized right kidney. No hydronephrosis CT necK: marked prevertebral soft tissue swelling This is a 53 year old female presenting with cellulitis, pleural effusions #Acute hypoxic respiratory failure secondary to right sided pleural effusion - was given 80 mg IV lasix+ 40 mg initially on admission. ECHO Shows normal Ef - CXR shows moderate right pleural effusion 12/06. - continue 40 mg IV lasix, repeat BMP in afternoon, if creatinine continues to improve, will continue with diuresis - wean oxygen saturation to 92% #Expiratory stridor- improved - CT neck 12/07 showed prevertebral soft tissue swelling extensive. ENT did NPL and there was no sign of infection Cellulitis -Was on IV vancomycin and zosyn with significant improvement in erythema and swelling - wound culture shows enterococcus. Sensitivites not done? - continue doxycycyline and augmentin day 5. Continue two more days #Acute Kidney Injury - improved to 1.57. Continue IV lasix Hyperkalemia -resolved after kayexelate and holding further lasix Folate deficiency Anemia - Hb 10, folate level 5. - started folate supplementeation Dispo: pending improvement in hypoxia Code status: full code
--- NOTE | 2019-12-09 17:20 | RAD ---
Chest AP view INDICATION: Follow-up pleural effusion COMPARISON: Prior exam dated December 08, 2019 FINDINGS: Lungs: Right basilar airspace disease persists. Cardiac silhouette: Cardiomegaly is stable. Pulmonary vasculature: Mildly prominent but stable Pleural spaces: Small right pleural effusion persists Upper abdomen: No abnormality seen. Osseous structures: No acute osseous abnormality. Additional findings: None. IMPRESSION: Stable exam
[2019-12-09] MEDS: Atorvastatin Calcium 40 MG TAB PO SCH (21:07)
[2019-12-09] MEDS: Insulin Glargine 50 UNITS in Pre-Filled Syringe 1 EACH SC SCH (21:07)
[2019-12-10 05:21] LABS: Hemoglobin 10.5 g/dL (12.0-16.0); Mean Corpuscular HGB CONC 29.8 g/dL (32.0-36.0); Mean Corpuscular Hemoglobin 28.2 pg (27.0-31.0); Mean Corpuscular Volume 94.5 fL (78.0-98.0); Mean Platelet Volume 7.4 fL (7.4-10.4); Platelet Count 352 thou/uL (130-400); RBC Distribution Width 16.1 % (11.5-14.5); Red Blood Cell (RBC) Count 3.74 mill/uL (4.20-5.40); White Blood Cell (WBC) Count 8.6 thou/uL (4.8-10.8)
[2019-12-10 05:42] LABS: Anion Gap 14 mmol/L (10-20); BUN (Urea Nitrogen) 43 mg/dL (9.8-20.1); Calc. Creatinine Clearance 126 mL/min (70-130); Calcium 8.8 mg/dL (7.8-10.44); Carbon Dioxide 22 mmol/L (22-29); Chloride 111 mmol/L (98-107); Estimated GFR-MDRD 39; Glucose 107 mg/dL (70-105); Magnesium 2.3 mg/dL (1.6-2.6); Potassium 4.1 mmol/L (3.5-5.1); Sodium 143 mmol/L (136-145)
[2019-12-10] MEDS: Metoprolol Tartrate 25 MG TAB PO SCH ×2 (09:16→21:45)
[2019-12-10] MEDS: Amoxicillin/Potassium Clav 875 MG TAB PO SCH (09:16)
[2019-12-10] MEDS: Doxycycline 100 MG CAP PO SCH (09:16)
[2019-12-10] MEDS: FLUoxetine HCl 20 MG CAP PO SCH (09:16)
[2019-12-10] MEDS: Furosemide 40 MG/4 ML VIAL SLOW IVP SCH (09:17)
[2019-12-10] MEDS: Folic Acid 1 MG TAB PO SCH (09:17)
[2019-12-10] MEDS: hydrALAZINE 20 MG/ML VIAL SLOW IVP PRN ×2 (11:11→15:43)
--- NOTE | 2019-12-10 13:52 | PDOC.HOSPP ---
- Subjective Encounter Date: 12/10/19 Encounter Time: 12:10 Subjective: this am, had some drowsiness, no resp.distress., sats good, BP high at 157/68 in the monitor. nrusing nearby. d/w them. - Objective Vital Signs & Weight: Vital Signs (12 hours) Temp Pulse Resp BP BP Pulse Ox 12/10/19 12:00 61 157/68 H 12/10/19 11:26 97.4 F L 64 20 176/79 H 94 L 12/10/19 11:11 61 176/79 H 12/10/19 09:29 62 184/81 H 12/10/19 08:00 93 L 12/10/19 07:14 97.7 F 56 L 20 158/74 H 93 L 12/10/19 04:08 98.6 F 54 L 20 176/72 H 92 L Weight Admit Weight 385 lb 11.2 oz Weight 391 lb 4.8 oz I&O: 12/09/19 12/10/19 12/11/19 06:59 06:59 06:59 Intake Total 630 1080 Output Total 8958 2025 700 Balance -595 -945 -700 Result Diagrams: 12/10/19 04:56 12/10/19 04:56 Additional Labs: Accuchecks 12/10/19 12/10/19 12/09/19 10:30 04:24 20:54 POC Glucose 98 118 H 152 H 12/09/19 17:20 POC Glucose 138 H Hospitalist ROS - Medication Medications: Active Medications Generic Name Dose Route Start Last Admin Trade Name Freq PRN Reason Stop Dose Admin Acetaminophen 650 mg 12/05/19 00:08 12/05/19 20:36 Tylenol PO 650 mg Q4H PRN Administration Headache/Fever/Mild Pain (1-3) Hydrocodone Bitart/Acetaminophen 1 tab 12/05/19 00:08 12/09/19 21:10 Bastian 5/325 PO 1 tab Q4H PRN Administration Moderate Pain (4-6) Albuterol Sulfate 1.25 mg 12/07/19 15:55 12/08/19 10:18 Albuterol Sulfate NEB 1.25 mg [id number] PRN Administration Wheezing Atorvastatin Calcium 40 mg 12/05/19 21:00 12/09/19 21:07 Lipitor PO 40 mg QPM BRITTANY Administration Cholecalciferol 1,000 units 12/05/19 09:00 12/10/19 09:16 Vitamin D3 PO 1,000 units DAILY BRITTANY Administration Fluoxetine HCl 40 mg 12/05/19 09:00 12/10/19 09:16 Prozac PO 40 mg DAILY BRITTANY Administration Folic Acid 1 mg 12/07/19 09:00 12/10/19 09:17 Folvite PO 1 mg DAILY BRITTANY Administration Furosemide 40 mg 12/10/19 09:00 12/10/19 09:17 Lasix SLOW IVP 40 mg DAILY BRITTANY Administration Hydralazine HCl 10 mg 12/10/19 10:53 12/10/19 11:11 Apresoline SLOW IVP 10 mg Q4H PRN Administration Blood Pressure SBP>150 Insulin Glargine 50 units/ 0.5 mls @ 0 mls/hr 12/05/19 21:00 12/09/19 21:07 Miscellaneous Medication SC 0.5 mls HS BRITTANY Administration Insulin Human Lispro 0 units 12/05/19 00:08 12/08/19 17:37 Humalog SC 2 units .MODERATE SLIDING SC PRN Administration Moderate Correctional Scale Metoprolol Tartrate 25 mg 12/05/19 09:00 12/10/19 09:16 Lopressor PO 25 mg BID BRITTANY Administration Ondansetron HCl 4 mg 12/05/19 00:08 12/05/19 06:08 Zofran IVP 4 mg Q6H PRN Administration Nausea/Vomiting Sodium Chloride 10 ml 12/05/19 09:00 12/10/19 09:17 Flush - Normal Saline IVF 10 ml Q12HR BRITTANY Administration Sodium Chloride 10 ml 12/05/19 06:55 12/08/19 21:22 Flush - Normal Saline IVF 10 ml PRN PRN Administration Saline Flush - Exam General Appearance: NAD, awake alert General - other findings: obese, r.. arm ecymoses w.. IV access. Eye: PERRL ENT: normocephalic atraumatic Neck: supple Heart: RRR Respiratory: CTAB, normal chest expansion Gastrointestinal: soft, normal bowel sounds Extremities - other findings: r.. arm ecymoses w.. IV access. Neurological: no focal deficits Psychiatric: A&O x 3 Hosp A/P - Plan ECHO: EF 50-55%, mild MR, sclerotic aortic valve, mild TR Chest X ray: mild CHF Renal US: poorly seen left kidney. Nonvisualized right kidney. No hydronephrosis CT necK: marked prevertebral soft tissue swelling 53 year old female presenting with left leg cellulitis, pleural effusions #Acute hypoxic respiratory failure secondary to right sided pleural effusion - ECHO Shows normal Ef - CXR shows moderate right pleural effusion 12/06. - continue 40 mg IV lasix #Expiratory stridor- improved - CT neck 12/07 showed prevertebral soft tissue swelling extensive. ENT did NPL and there was no sign of infection Left leg Cellulitis -Was on IV vancomycin and zosyn w - wound culture shows enterococcus. Sensitivites not done? - cw zosyn as pt has several risk factors, poor healing rate w.. her condn.. as several blisters dissolving, clear liquid oozing from some areas. #Acute Kidney Injury - improved to 1.57. Continue IV lasix Hyperkalemia -resolved Folate deficiency Anemia - started folate supplementeation Code status: full code Dispo:when medically stable
[2019-12-10] MEDS: Piperacillin/Tazobactam 3.375 GM in Sodium Chloride 0.9% 100 ML IVPB SCH ×2 (13:59→21:59)
[2019-12-10] MEDS: HumaLOG 300 UNITS/3 ML VIAL SC PRN (17:40)
[2019-12-10] MEDS ORDERED: cloNIDine 0.1 MG TAB PO PRN (17:53)
[2019-12-10] MEDS: Insulin Glargine 50 UNITS in Pre-Filled Syringe 1 EACH SC SCH (21:45)
[2019-12-10] MEDS: Atorvastatin Calcium 40 MG TAB PO SCH (21:45)
[2019-12-10] MEDS: HYDROcodone/Acetaminophen 5/325 mg Tablet PO PRN (21:48)
[2019-12-10] MEDS: Albuterol Sulfate 1.25 MG/3 ML NEB NEB PRN (22:29)
[2019-12-11] MEDS: Piperacillin/Tazobactam 3.375 GM in Sodium Chloride 0.9% 100 ML IVPB SCH ×3 (05:49→22:55)
[2019-12-11] MEDS: Folic Acid 1 MG TAB PO SCH (08:25)
[2019-12-11] MEDS: FLUoxetine HCl 20 MG CAP PO SCH (08:25)
[2019-12-11] MEDS: Metoprolol Tartrate 25 MG TAB PO SCH ×2 (08:25→22:54)
[2019-12-11] MEDS: Furosemide 40 MG/4 ML VIAL SLOW IVP SCH (08:25)
[2019-12-11] MEDS: HYDROcodone/Acetaminophen 5/325 mg Tablet PO PRN ×2 (08:28→22:52)
[2019-12-11] MEDS ORDERED: Metoprolol Tartrate 25 MG TAB PO SCH (10:15)
--- NOTE | 2019-12-11 13:57 | PDOC.HOSPP ---
- Subjective Encounter Date: 12/11/19 Encounter Time: 09:50 Subjective: Her left leg cellulitis looks much better - erythema improving. BP high. pt resting and she has no c/o;she states that she usually takes abx for atleast 10 days w.. prior hx of cellulitis. - Objective Vital Signs & Weight: Vital Signs (12 hours) Temp Pulse Resp BP Pulse Ox 12/11/19 11:59 97.8 F 55 L 20 173/85 H 95 12/11/19 11:37 53 L 173/85 H 12/11/19 07:56 98.2 F 54 L 20 173/83 H 94 L 12/11/19 05:00 97.9 F 53 L 20 145/65 H 92 L Weight Admit Weight 385 lb 11.2 oz Weight 391 lb 4.8 oz I&O: 12/10/19 12/11/19 12/12/19 06:59 06:59 06:59 Intake Total 1080 120 480 Output Total 2024 1900 Balance -945 -8703 480 Result Diagrams: 12/10/19 04:56 12/10/19 04:56 Additional Labs: Accuchecks 12/11/19 12/11/19 12/10/19 10:49 05:33 20:08 POC Glucose 101 87 140 H 12/10/19 17:41 POC Glucose 202 H Hospitalist ROS - Medication Medications: Active Medications Generic Name Dose Route Start Last Admin Trade Name Freq PRN Reason Stop Dose Admin Acetaminophen 650 mg 12/05/19 00:08 12/05/19 20:36 Tylenol PO 650 mg Q4H PRN Administration Headache/Fever/Mild Pain (1-3) Hydrocodone Bitart/Acetaminophen 1 tab 12/05/19 00:08 12/11/19 08:28 [place] 5/325 PO 1 tab Q4H PRN Administration Moderate Pain (4-6) Albuterol Sulfate 1.25 mg 12/07/19 15:55 12/10/19 22:29 Albuterol Sulfate NEB 1.25 mg [id number] PRN Administration Wheezing Atorvastatin Calcium 40 mg 12/05/19 21:00 12/10/19 21:45 Lipitor PO 40 mg QPM BRITTANY Administration Cholecalciferol 1,000 units 12/05/19 09:00 12/11/19 08:25 Vitamin D3 PO 1,000 units DAILY BRITTANY Administration Fluoxetine HCl 40 mg 12/05/19 09:00 12/11/19 08:25 Prozac PO 40 mg DAILY BRITTANY Administration Folic Acid 1 mg 12/07/19 09:00 12/11/19 08:25 Folvite PO 1 mg DAILY BRITTANY Administration Furosemide 40 mg 12/10/19 09:00 12/11/19 08:25 Lasix SLOW IVP 40 mg DAILY BRITTANY Administration Hydralazine HCl 10 mg 12/10/19 10:53 12/10/19 15:43 Apresoline SLOW IVP 10 mg Q4H PRN Administration Blood Pressure SBP>150 Insulin Glargine 50 units/ 0.5 mls @ 0 mls/hr 12/05/19 21:00 12/10/19 21:45 Miscellaneous Medication SC 0.5 mls HS BRITTANY Administration Piperacillin Sod/Tazobactam 100 mls @ 200 mls/hr 12/10/19 14:00 12/11/19 13: 15 Sod 3.375 gm/ Sodium Chloride IVPB 100 mls Q8HR BRITTANY Administration Insulin Human Lispro 0 units 12/05/19 00:08 12/10/19 17:40 Humalog SC 4 units .MODERATE SLIDING SC PRN Administration Moderate Correctional Scale Ondansetron HCl 4 mg 12/05/19 00:08 12/05/19 06:08 Zofran IVP 4 mg Q6H PRN Administration Nausea/Vomiting Sodium Chloride 10 ml 12/05/19 09:00 12/11/19 08:25 Flush - Normal Saline IVF 10 ml Q12HR BRITTANY Administration Sodium Chloride 10 ml 12/05/19 06:55 12/08/19 21:22 Flush - Normal Saline IVF 10 ml PRN PRN Administration Saline Flush - Exam General Appearance: NAD, awake alert General - other findings: obese Eye: PERRL ENT: normocephalic atraumatic Neck: supple, symmetric Heart: RRR Respiratory: CTAB, normal chest expansion Gastrointestinal: soft, normal bowel sounds Gastrointestinal - other findings: pnaus, protuberant w.. body habitis Extremities - other findings: r.leg --erythema much better Neurological: no focal deficits Hosp A/P - Plan ECHO: EF 50-55%, mild MR, sclerotic aortic valve, mild TR Chest X ray: mild CHF Renal US: poorly seen left kidney. Nonvisualized right kidney. No hydronephrosis CT necK: marked prevertebral soft tissue swelling 53 year old female presenting with left leg cellulitis, pleural effusions #Acute hypoxic respiratory failure secondary to right sided pleural effusion - ECHO Shows normal Ef - CXR shows moderate right pleural effusion 12/06. - continue 40 mg IV lasix #Expiratory stridor- improved - CT neck 12/07 showed prevertebral soft tissue swelling extensive. ENT did NPL and there was no sign of infection Left leg Cellulitis -Was on IV vancomycin and zosyn w - wound culture shows enterococcus. Sensitivites not done? - cw zosyn as pt has several risk factors, poor healing rate w.. her condn.. as several blisters dissolving, clear liquid oozing from some areas. -improving. #Acute Kidney Injury - improved to 1.57. Continue IV lasix Hyperkalemia -resolved Folate deficiency Anemia - started folate supplementeation Code status: full code Dispo:when medically stable to rehab PT/OT and cM c/s in place. pt lives w.. spouse and dtr at home.
[2019-12-11] MEDS: Atorvastatin Calcium 40 MG TAB PO SCH (22:54)
[2019-12-11] MEDS: Insulin Glargine 50 UNITS in Pre-Filled Syringe 1 EACH SC SCH (22:54)
[2019-12-12] MEDS: Metoprolol Tartrate 25 MG TAB PO SCH ×2 (09:15→21:33)
[2019-12-12] MEDS: Furosemide 40 MG/4 ML VIAL SLOW IVP SCH (09:16)
[2019-12-12] MEDS: FLUoxetine HCl 20 MG CAP PO SCH (09:16)
[2019-12-12] MEDS: Folic Acid 1 MG TAB PO SCH (09:16)
[2019-12-12] MEDS: Piperacillin/Tazobactam 3.375 GM in Sodium Chloride 0.9% 100 ML IVPB SCH (09:16)
[2019-12-12] MEDS: HYDROcodone/Acetaminophen 5/325 mg Tablet PO PRN (09:16)
--- NOTE | 2019-12-12 12:57 | PDOC.HOSPP ---
- Subjective Encounter Date: 12/12/19 Encounter Time: 09:50 Subjective: pt doing well, she has no c/o; r. leg cellulitis - erythema is much better, almost like rest of the skin color. - Objective Vital Signs & Weight: Vital Signs (12 hours) Temp Pulse Resp BP Pulse Ox 12/12/19 12:00 97.5 F L 58 L 18 189/91 H 92 L 12/12/19 08:00 97.5 F L 51 L 18 181/84 H 96 12/12/19 03:57 97 12/12/19 03:15 97.8 F 47 L 22 H 132/66 97 Weight Admit Weight 385 lb 11.2 oz Weight 391 lb 4.8 oz I&O: 12/11/19 12/12/19 12/13/19 06:59 06:59 06:59 Intake Total 120 720 450 Output Total 1900 1200 Balance -1780 -480 450 Result Diagrams: 12/10/19 04:56 12/10/19 04:56 Additional Labs: Accuchecks 12/12/19 12/12/19 12/11/19 10:52 06:20 20:34 POC Glucose 113 H 112 H 122 H 12/11/19 16:58 POC Glucose 106 Hospitalist ROS - Medication Medications: Active Medications Generic Name Dose Route Start Last Admin Trade Name Freq PRN Reason Stop Dose Admin Acetaminophen 650 mg 12/05/19 00:08 12/05/19 20:36 Tylenol PO 650 mg Q4H PRN Administration Headache/Fever/Mild Pain (1-3) Hydrocodone Bitart/Acetaminophen 1 tab 12/05/19 00:08 12/12/19 09:16 [place] 5/325 PO 1 tab Q4H PRN Administration Moderate Pain (4-6) Albuterol Sulfate 1.25 mg 12/07/19 15:55 12/10/19 22:29 Albuterol Sulfate NEB 1.25 mg [id number] PRN Administration Wheezing Atorvastatin Calcium 40 mg 12/05/19 21:00 12/11/19 22:54 Lipitor PO 40 mg QPM BRITTANY Administration Cholecalciferol 1,000 units 12/05/19 09:00 12/12/19 09:16 Vitamin D3 PO 1,000 units DAILY BRITTANY Administration Fluoxetine HCl 40 mg 12/05/19 09:00 12/12/19 09:16 Prozac PO 40 mg DAILY BRITTANY Administration Folic Acid 1 mg 12/07/19 09:00 12/12/19 09:16 Folvite PO 1 mg DAILY BRITTANY Administration Furosemide 40 mg 12/10/19 09:00 12/12/19 09:16 Lasix SLOW IVP 40 mg DAILY BRITTANY Administration Hydralazine HCl 10 mg 12/10/19 10:53 12/10/19 15:43 Apresoline SLOW IVP 10 mg Q4H PRN Administration Blood Pressure SBP>150 Insulin Glargine 50 units/ 0.5 mls @ 0 mls/hr 12/05/19 21:00 12/11/19 22:54 Miscellaneous Medication SC 0.5 mls HS BRITTANY Administration Insulin Human Lispro 0 units 12/05/19 00:08 12/10/19 17:40 Humalog SC 4 units .MODERATE SLIDING SC PRN Administration Moderate Correctional Scale Metoprolol Tartrate 50 mg 12/11/19 21:00 12/12/19 09:15 Lopressor PO 50 mg BID BRITTANY Administration Ondansetron HCl 4 mg 12/05/19 00:08 12/05/19 06:08 Zofran IVP 4 mg Q6H PRN Administration Nausea/Vomiting Sodium Chloride 10 ml 12/05/19 09:00 12/12/19 09:18 Flush - Normal Saline IVF 10 ml Q12HR BRITTANY Administration Sodium Chloride 10 ml 12/05/19 06:55 12/08/19 21:22 Flush - Normal Saline IVF 10 ml PRN PRN Administration Saline Flush - Exam General Appearance: NAD, awake alert Eye: PERRL ENT: normocephalic atraumatic Neck: supple Heart: RRR Respiratory: CTAB, normal chest expansion Gastrointestinal: soft, normal bowel sounds Extremities - other findings: r. leg cellulitis - erythema is much better, almost like rest of the skin c Neurological: no focal deficits Psychiatric: A&O x 3 Hosp A/P - Plan ECHO: EF 50-55%, mild MR, sclerotic aortic valve, mild TR Chest X ray: mild CHF Renal US: poorly seen left kidney. Nonvisualized right kidney. No hydronephrosis CT necK: marked prevertebral soft tissue swelling 53 year old female presenting with left leg cellulitis, pleural effusions #Acute hypoxic respiratory failure secondary to right sided pleural effusion - ECHO Shows normal Ef - CXR shows moderate right pleural effusion 12/06. - continue 40 mg IV lasix #Expiratory stridor- improved - CT neck 12/07 showed prevertebral soft tissue swelling extensive. ENT did NPL and there was no sign of infection Left leg Cellulitis -Was on IV vancomycin and zosyn w - wound culture shows enterococcus. Sensitivites not done? - cw zosyn as pt has several risk factors, poor healing rate w.. her condn.. as several blisters dissolving, clear liquid oozing from some areas. -improving. #Acute Kidney Injury - improved to 1.57. Continue IV lasix Hyperkalemia -resolved Folate deficiency Anemia - started folate supplementeation Code status: full code Dispo:when medically stable to rehab PT/OT and cM c/s in place. pt lives w.. spouse and dtr at home. december 11 --dc IV abx; swtiched to [facility] for 5 more days for R. leg cellulitis. pending rehab.
[2019-12-12] MEDS: Albuterol Sulfate 1.25 MG/3 ML NEB NEB PRN (14:04)
[2019-12-12] MEDS: hydrALAZINE 25 MG TAB PO SCH ×2 (16:29→21:34)
[2019-12-12] MEDS: Atorvastatin Calcium 40 MG TAB PO SCH (21:34)
[2019-12-12] MEDS: Insulin Glargine 50 UNITS in Pre-Filled Syringe 1 EACH SC SCH (22:07)
[2019-12-13] MEDS: HYDROcodone/Acetaminophen 5/325 mg Tablet PO PRN ×3 (01:41→18:11)
[2019-12-13 05:07] LABS: #Basophils 0.2 thou/uL (0.0-0.2); #Eosinphils 0.2 thou/uL (0.0-0.7); #Lymphocytes 1.8 thou/uL (1.20-3.40); %Basophils 1.5 % (0.0-1.0); %Eosinophils 2.2 % (0.0-10.0); %Lymphocytes 15.7 % (21.0-51.0); %Monocytes 8.9 % (0.0-10.0); %Neutrophils 71.7 % (42.0-75.0); Hemoglobin 10.6 g/dL (12.0-16.0); Mean Corpuscular Hemoglobin 27.2 pg (27.0-31.0); Mean Platelet Volume 7.6 fL (7.4-10.4); Platelet Count 355 thou/uL (130-400); RBC Distribution Width 16.5 % (11.5-14.5); White Blood Cell (WBC) Count 11.1 thou/uL (4.8-10.8)
[2019-12-13] MEDS: FLUoxetine HCl 20 MG CAP PO SCH (07:49)
[2019-12-13] MEDS: Folic Acid 1 MG TAB PO SCH (07:49)
[2019-12-13] MEDS: hydrALAZINE 25 MG TAB PO SCH ×3 (07:49→22:00)
[2019-12-13] MEDS: Metoprolol Tartrate 25 MG TAB PO SCH ×2 (07:49→22:00)
[2019-12-13] MEDS: Furosemide 40 MG/4 ML VIAL SLOW IVP SCH (07:49)
[2019-12-13 08:42] LABS: Anion Gap 11 mmol/L (10-20); BUN (Urea Nitrogen) 50 mg/dL (9.8-20.1); Calc. Creatinine Clearance 101 mL/min (70-130); Calcium 9.1 mg/dL (7.8-10.44); Carbon Dioxide 29 mmol/L (22-29); Chloride 109 mmol/L (98-107); Estimated GFR-MDRD 30; Glucose 87 mg/dL (70-105); Potassium 4.9 mmol/L (3.5-5.1); Sodium 144 mmol/L (136-145)
--- NOTE | 2019-12-13 11:57 | PDOC.HOSPP ---
- Subjective Encounter Date: 12/13/19 Encounter Time: 10:10 Subjective: Doing well, her R. leg cellulitis improved. spouse at bedside, states waiting for CM's visit this am. - Objective Vital Signs & Weight: Vital Signs (12 hours) Temp Pulse Resp BP Pulse Ox 12/13/19 08:00 97.4 F L 50 L 18 159/91 H 92 L 12/13/19 07:50 92 L 12/13/19 07:49 47 L 12/13/19 04:07 97.7 F 47 L 16 144/74 H 95 12/12/19 23:57 97.5 F L 48 L 16 128/67 96 Weight Admit Weight 385 lb 11.2 oz Weight 391 lb 4.8 oz I&O: 12/12/19 12/13/19 12/14/19 06:59 06:59 06:59 Intake Total 720 1766 300 Output Total 1200 900 Balance -480 866 300 Result Diagrams: 12/13/19 04:43 12/13/19 08:02 Additional Labs: Accuchecks 12/12/19 17:27 POC Glucose 118 H Hospitalist ROS - Medication Medications: Active Medications Generic Name Dose Route Start Last Admin Trade Name Freq PRN Reason Stop Dose Admin Acetaminophen 650 mg 12/05/19 00:08 12/05/19 20:36 Tylenol PO 650 mg Q4H PRN Administration Headache/Fever/Mild Pain (1-3) Hydrocodone Bitart/Acetaminophen 1 tab 12/05/19 00:08 12/13/19 11:19 [place] 5/325 PO 1 tab Q4H PRN Administration Moderate Pain (4-6) Albuterol Sulfate 1.25 mg 12/07/19 15:55 12/12/19 14:04 Albuterol Sulfate NEB 1.25 mg [id number] PRN Administration Wheezing Atorvastatin Calcium 40 mg 12/05/19 21:00 12/12/19 21:34 Lipitor PO 40 mg QPM BRITTANY Administration Cholecalciferol 1,000 units 12/05/19 09:00 12/13/19 07:49 Vitamin D3 PO 1,000 units DAILY BRITTANY Administration Fluoxetine HCl 40 mg 12/05/19 09:00 12/13/19 07:49 Prozac PO 40 mg DAILY BRITTANY Administration Folic Acid 1 mg 12/07/19 09:00 12/13/19 07:49 Folvite PO 1 mg DAILY BRITTANY Administration Furosemide 40 mg 12/10/19 09:00 12/13/19 07:49 Lasix SLOW IVP 40 mg DAILY BRITTANY Administration Hydralazine HCl 10 mg 12/10/19 10:53 12/10/19 15:43 Apresoline SLOW IVP 10 mg Q4H PRN Administration Blood Pressure SBP>150 Hydralazine HCl 25 mg 12/12/19 15:00 12/13/19 07:49 Apresoline PO 25 mg TID BRITTANY Administration Insulin Glargine 50 units/ 0.5 mls @ 0 mls/hr 12/05/19 21:00 12/12/19 22:07 Miscellaneous Medication SC 0.5 mls HS BRITTANY Administration Insulin Human Lispro 0 units 12/05/19 00:08 12/10/19 17:40 Humalog SC 4 units .MODERATE SLIDING SC PRN Administration Moderate Correctional Scale Metoprolol Tartrate 50 mg 12/11/19 21:00 12/13/19 07:49 Lopressor PO 50 mg BID BRITTANY Administration Ondansetron HCl 4 mg 12/05/19 00:08 12/05/19 06:08 Zofran IVP 4 mg Q6H PRN Administration Nausea/Vomiting Sodium Chloride 10 ml 12/05/19 09:00 12/13/19 07:50 Flush - Normal Saline IVF 10 ml Q12HR BRITTANY Administration Sodium Chloride 10 ml 12/05/19 06:55 12/08/19 21:22 Flush - Normal Saline IVF 10 ml PRN PRN Administration Saline Flush - Exam General Appearance: NAD, awake alert General - other findings: obese Eye: PERRL ENT: normocephalic atraumatic Neck: supple Heart: RRR Respiratory: CTAB, rhonchi, tachypneic Gastrointestinal: soft, normal bowel sounds, no guarding, distended Extremities - other findings: r. leg erythema improved Neurological: no focal deficits Psychiatric: A&O x 3 Hosp A/P - Plan ECHO: EF 50-55%, mild MR, sclerotic aortic valve, mild TR Chest X ray: mild CHF Renal US: poorly seen left kidney. Nonvisualized right kidney. No hydronephrosis CT necK: marked prevertebral soft tissue swelling 53 year old female presenting with left leg cellulitis, pleural effusions #Acute hypoxic respiratory failure secondary to right sided pleural effusion - ECHO Shows normal Ef - CXR shows moderate right pleural effusion 12/06. - continue 40 mg IV lasix #Expiratory stridor- improved - CT neck 12/07 showed prevertebral soft tissue swelling extensive. ENT did NPL and there was no sign of infection Left leg Cellulitis -Was on IV vancomycin and zosyn w - wound culture shows enterococcus. Sensitivites not done? - cw zosyn as pt has several risk factors, poor healing rate w.. her condn.. as several blisters dissolving, clear liquid oozing from some areas. -improving. #Acute Kidney Injury - improved to 1.57. Continue IV lasix Hyperkalemia -resolved Folate deficiency Anemia - started folate supplementeation Code status: full code Dispo:when medically stable to rehab PT/OT and cM c/s in place. pt lives w.. spouse and dtr at home. december 11 --dc IV abx; swtiched to [facility] for 5 more days for R. leg cellulitis. pending rehab. 2nd -cw above mgmt. -bactrim is not prescribed as Cr trending up/ d/t IV diuresis -keep on augmentin -monitor cr stable for rehab.
--- NOTE | 2019-12-13 20:11 | PRG ---
DATE OF SERVICE: 12/13/2019 Annabel Davila is afebrile. Heart rate in the 50s, respiratory rates in the teens. Blood pressure is hard to probably get accurately, it has been variable from 128 systolic to 171 systolic. There are no new problems reported. We reviewed the notes. I am still concerned that she has a paraspinous abscess that is asymptomatic at this point in time. I will plan to discuss with Infectious Disease in the morning. Job ID: [id number]
[2019-12-13] MEDS: Insulin Glargine 50 UNITS in Pre-Filled Syringe 1 EACH SC SCH (22:00)
[2019-12-13] MEDS: Atorvastatin Calcium 40 MG TAB PO SCH (22:00)
[2019-12-13] MEDS: Amoxicillin/Potassium Clav 500 MG TAB PO SCH (22:00)
[2019-12-14] MEDS: HYDROcodone/Acetaminophen 5/325 mg Tablet PO PRN ×2 (02:53→19:09)
[2019-12-14 04:56] LABS: Anion Gap 14 mmol/L (10-20); BUN (Urea Nitrogen) 59 mg/dL (9.8-20.1); Calc. Creatinine Clearance 93 mL/min (70-130); Calcium 8.9 mg/dL (7.8-10.44); Carbon Dioxide 25 mmol/L (22-29); Chloride 107 mmol/L (98-107); Estimated GFR-MDRD 27; Glucose 117 mg/dL (70-105); Potassium 4.5 mmol/L (3.5-5.1); Sodium 141 mmol/L (136-145)
[2019-12-14] MEDS: hydrALAZINE 25 MG TAB PO SCH ×3 (08:37→20:09)
[2019-12-14] MEDS: Metoprolol Tartrate 25 MG TAB PO SCH ×2 (08:39→20:09)
[2019-12-14] MEDS: FLUoxetine HCl 20 MG CAP PO SCH (08:39)
[2019-12-14] MEDS: Folic Acid 1 MG TAB PO SCH (08:39)
--- NOTE | 2019-12-14 11:32 | PDOC.HOSPP ---
- Subjective Encounter Date: 12/14/19 Encounter Time: 11:30 Subjective: pt doing well, talk to CM on possible dc for LTAC -- may be later today or in am. cr trending up. - Objective Vital Signs & Weight: Vital Signs (12 hours) Temp Pulse Resp BP BP Pulse Ox 12/14/19 11:14 97.6 F 48 L 16 161/78 H 96 12/14/19 08:37 47 L 136/85 12/14/19 07:52 97.5 F L 47 L 20 136/85 96 12/14/19 04:52 98.7 F 52 L 20 141/72 H 92 L 12/14/19 02:59 125/63 12/14/19 01:30 97.6 F 54 L 20 184/70 H 94 L Weight Admit Weight 385 lb 11.2 oz Weight 391 lb 4.8 oz I&O: 12/13/19 12/14/19 12/15/19 06:59 06:59 06:59 Intake Total 1766 1220 Output Total 900 Balance 866 1220 Result Diagrams: 12/13/19 04:43 12/14/19 04:07 Additional Labs: Accuchecks 12/14/19 12/14/19 12/13/19 10:31 05:34 20:27 POC Glucose 97 109 113 H 12/13/19 12/13/19 12/13/19 17:06 11:00 05:49 POC Glucose 88 88 66 L 12/12/19 21:05 POC Glucose 167 H Hospitalist ROS - Medication Medications: Active Medications Generic Name Dose Route Start Last Admin Trade Name Freq PRN Reason Stop Dose Admin Acetaminophen 650 mg 12/05/19 00:08 12/05/19 20:36 Tylenol PO 650 mg Q4H PRN Administration Headache/Fever/Mild Pain (1-3) Hydrocodone Bitart/Acetaminophen 1 tab 12/05/19 00:08 12/14/19 02:53 [place] 5/325 PO 1 tab Q4H PRN Administration Moderate Pain (4-6) Albuterol Sulfate 1.25 mg 12/07/19 15:55 12/12/19 14:04 Albuterol Sulfate NEB 1.25 mg [id number] PRN Administration Wheezing Amoxicillin/Clavulanate Potassium 500 mg 12/13/19 21:00 12/13/19 22:00 Augmentin PO 500 mg Q12HR BRITTANY Administration Atorvastatin Calcium 40 mg 12/05/19 21:00 12/13/19 22:00 Lipitor PO 40 mg QPM BRITTANY Administration Cholecalciferol 1,000 units 12/05/19 09:00 12/14/19 08:39 Vitamin D3 PO 1,000 units DAILY BRITTANY Administration Fluoxetine HCl 40 mg 12/05/19 09:00 12/14/19 08:39 Prozac PO 40 mg DAILY BRITTANY Administration Folic Acid 1 mg 12/07/19 09:00 12/14/19 08:39 Folvite PO 1 mg DAILY BRITTANY Administration Hydralazine HCl 10 mg 12/10/19 10:53 12/10/19 15:43 Apresoline SLOW IVP 10 mg Q4H PRN Administration Blood Pressure SBP>150 Hydralazine HCl 25 mg 12/12/19 15:00 12/14/19 08:37 Apresoline PO 25 mg TID BRITTANY Administration Insulin Glargine 50 units/ 0.5 mls @ 0 mls/hr 12/05/19 21:00 12/13/19 22:00 Miscellaneous Medication SC 0.5 mls HS BRITTANY Administration Insulin Human Lispro 0 units 12/05/19 00:08 12/10/19 17:40 Humalog SC 4 units .MODERATE SLIDING SC PRN Administration Moderate Correctional Scale Metoprolol Tartrate 50 mg 12/11/19 21:00 12/14/19 08:39 Lopressor PO 50 mg BID BRITTANY Administration Ondansetron HCl 4 mg 12/05/19 00:08 12/05/19 06:08 Zofran IVP 4 mg Q6H PRN Administration Nausea/Vomiting Sodium Chloride 10 ml 12/05/19 09:00 12/14/19 08:39 Flush - Normal Saline IVF 10 ml Q12HR BRITTANY Administration Sodium Chloride 10 ml 12/05/19 06:55 12/08/19 21:22 Flush - Normal Saline IVF 10 ml PRN PRN Administration Saline Flush - Exam General Appearance: NAD, awake alert Eye: PERRL ENT: normocephalic atraumatic Neck: supple Heart: RRR Respiratory: CTAB, normal chest expansion Gastrointestinal: soft Neurological: no focal deficits Psychiatric: normal affect, normal behavior, A&O x 3 Hosp A/P - Plan ECHO: EF 50-55%, mild MR, sclerotic aortic valve, mild TR Chest X ray: mild CHF Renal US: poorly seen left kidney. Nonvisualized right kidney. No hydronephrosis CT necK: marked prevertebral soft tissue swelling 53 year old female presenting with left leg cellulitis, pleural effusions #Acute hypoxic respiratory failure secondary to right sided pleural effusion KEREN/OHS - ECHO Shows normal Ef - CXR shows moderate right pleural effusion 12/06. - continue 40 mg IV lasix #Expiratory stridor- improved - CT neck 12/07 showed prevertebral soft tissue swelling extensive. ENT did NPL and there was no sign of infection Left leg Cellulitis -Was on IV vancomycin and zosyn w - wound culture shows enterococcus. Sensitivites not done? - cw zosyn as pt has several risk factors, poor healing rate w.. her condn.. as several blisters dissolving, clear liquid oozing from some areas. -improving. #Acute Kidney Injury - improved to 1.57. Continue IV lasix Hyperkalemia -resolved Folate deficiency Anemia - started folate supplementeation Morbid obesity Code status: full code Dispo:when medically stable to rehab PT/OT and cM c/s in place. pt lives w.. spouse and dtr at home. -- -cw above mgmt. -keep on augmentin upward trend- cr --swtiched to po lasix as her LE edema improved stable for rehab.
[2019-12-14] MEDS: Amoxicillin/Potassium Clav 500 MG TAB PO SCH ×2 (12:59→20:11)
--- NOTE | 2019-12-14 15:45 | PRG ---
DATE OF SERVICE: 12/14/2019 SUBJECTIVE: Ms. Davila has no new complaints. She has been in bed when I saw her. OBJECTIVE: VITAL SIGNS: She is afebrile, heart rate 54, respiratory rate is 18, oximetry is 95% on 1 L, blood pressure 160/70. LUNGS: Unchanged. HEART: Unchanged. ABDOMEN: Unchanged. She is having no respiratory distress or upper airway compromise. Creatinine is creeping upward and is 1.92 today. On the , it was 1.57. I have asked Infectious Disease to review her CT of her neck to see if there is concern that this may be a paraspinous abscess. The endoscopic findings really do not delineate this problem well. It is unclear if she meets a weight limit for magnetic resonance imaging of her cervical spine. Job ID: [id number]
[2019-12-14] MEDS: Atorvastatin Calcium 40 MG TAB PO SCH (20:08)
[2019-12-14] MEDS: Insulin Glargine 50 UNITS in Pre-Filled Syringe 1 EACH SC SCH (20:10)
--- NOTE | 2019-12-14 21:16 | CON ---
DATE OF CONSULTATION: 12/14/2019 REASON FOR CONSULTATION: Cellulitis right lower extremity and changes in the C-spine on CT scan. HISTORY OF PRESENT ILLNESS: A 53-year-old, whom I had seen in the previous admissions, last one was in 2015 when she presented with a history of morbid obesity, type 2 diabetes, neuropathy, chronic Charcot arthropathy left foot with complications, which required surgical intervention by Dr. Rosales and not seen her since and now she presented according to her own account because of worsening swelling in lower extremities. In the emergency room note, it is stated that her concern with more with the right side with associated pain. She did have also abdominal swelling for the past month before admission. On arrival; BP 120/60, pulse 90, respirations 26, and she did not have a fever. There was evidence of erythema in the right leg both anterior and medial aspect and the patient in addition had a white cell count of 9.2, hemoglobin 10.4, platelets 326 with 79% neutrophils and sodium 145, creatinine 1.86, AST 19, ALT 15, and alkaline phosphatase 226 with albumin 3.8. D-dimer 0.94. Urinalysis was normal. The patient was managed with furosemide, ceftriaxone, vancomycin, doxycycline, and Zosyn. On 12/06, the patient had a neck CT performed, this was a noncontrast study. The reason is to evaluate expiratory stridor. She felt that there was something caught in her throat. There was limited evaluation because of lack of IV contrast. There is marked edema and fluid involving the prevertebral space starting at the base of the skull extending inferiorly to the C5 level without gas. There are patchy opacities in lung parenchyma, which could represent edema or an infiltrate and diffuse edema and soft tissue structures as well suggestive of anasarca. There was narrowing of the hypopharynx and supraglottic airway. She has been transitioned to Augmentin. At the moment, she still has which she describes as wheezing in the upper airway. Denies any headaches. No visual symptoms. Mild dyspnea. No chest pain. Still quite a bit of anasarca although less than on admission and is incontinent voiding in the diaper. PAST MEDICAL HISTORY: Morbid obesity, type 2 diabetes, Charcot arthropathy left side, and renal insufficiency. The baseline creatinine was 0.84 in 2015 when I last saw her and now has significantly worsened. Her estimated GFR has decreased from 71 down to the 30s. The patient has a history of hyperlipidemia as well and has had surgeries in the left foot with Dr. Rosales for management of Charcot arthropathy. History of hypertension. SOCIAL HISTORY: Never smoker. Lives in [place] with family members. She uses a manual wheelchair for mobility. ALLERGIES: NONE. MEDICATION LIST: At the moment; 1. Tylenol. 2. Garden. 3. Albuterol. 4. Augmentin. 5. Lipitor. 6. Catapres. 7. Prozac. 8. Folvite. 9. Lasix. 10. Glucagon. 11. Insulin. 12. Lopressor. PHYSICAL EXAMINATION: VITAL SIGNS: The temperature has been normal since admission, BP 160/78, pulse 48, respirations 16, and O2 saturation 96. GENERAL: The patient does not appear in distress, oriented. SKIN: Shows the area in the right leg, which compared with the photos on admission has improved at least 70%. There is one area of what appears to be a pustule in the medial aspect or dried yellow scab. The left foot, there are no inflammatory changes there. All the surgical incisions have healed properly. No lymphadenopathy. HEENT: Ocular movements conjugate. Oral cavity is not remarkable. Still has some teeth in place. NECK: Supple with no tenderness. Posterior oropharyngeal area was not abnormal. No swallowing problems. No tenderness. LUNGS: Symmetric air entry with no crackles or wheezing. Maybe a little bit of wheezing in the upper airways. HEART: S1 and S2. Regular rate. No S3 or S4. ABDOMEN: Soft with quite pronounced lymphedema in the abdominal wall. Hard to evaluate her organs and bladder due to the lymphedema. EXTREMITIES: She moves extremities on command. She is weak in lower extremities. NEUROLOGIC: She is oriented. Follows commands. Speech is normal. LABORATORY DATA: White cell count has been stable, the last one is 8.6, hemoglobin 10.5, and platelets 352. D-dimer 0.94. Sodium 141 and creatinine 1.92, which is a little bit higher than on admission, but not much. Microbiology with presumptive Enterococcus from skins swab culture. The latest chest x-ray from 12/08 with basilar airspace disease, cardiomegaly, small right pleural effusion. ASSESSMENT: 1. Type 2 diabetes, morbid obesity, Charcot arthropathy left foot with no evidence of inflammatory process at the moment. 2. Cellulitis, right lower extremity. 3. Findings on CT scan with fluid density in the retropharyngeal space. DISCUSSION: The differential diagnosis of fluid density in the retropharyngeal space includes infection, anasarca with edema, and other localized manifestations that some of them can be inflammatory in character. In her case, the imaging was done without contrast, which could offer some subsidy in terms of the differential diagnosis, but in her case, in the absence of pain, the symmetry of the fluid distribution and as well as the association with anasarca makes it very likely that this fluid is not infectious fluid, but just related to her volume overload in general. She does sleep flat at night and that probably allows for the fluid to distribute towards the area from the lower structures. So, I would recommend treating the cellulitis what has been used right now, she may be a candidate for suppressive therapy with penicillin VK. With further improvement in the amount of edema, then one should see a resolution of this accumulation infective. A CT scan will be repeated in the next few days probably or might see such a decrease in the amount of fluid in the retropharyngeal space. Job ID: [id number]
[2019-12-15 05:11] LABS: Anion Gap 15 mmol/L (10-20); BUN (Urea Nitrogen) 61 mg/dL (9.8-20.1); Calc. Creatinine Clearance 99 mL/min (70-130); Calcium 8.8 mg/dL (7.8-10.44); Carbon Dioxide 23 mmol/L (22-29); Chloride 108 mmol/L (98-107); Estimated GFR-MDRD 29; Glucose 121 mg/dL (70-105); Potassium 4.5 mmol/L (3.5-5.1); Sodium 141 mmol/L (136-145)
[2019-12-15 06:24] VITALS: BMI 67.1
[2019-12-15] MEDS ORDERED: Furosemide 40 MG TAB PO SCH (07:30)
[2019-12-15] MEDS: FLUoxetine HCl 20 MG CAP PO SCH (09:15)
[2019-12-15] MEDS: Acetaminophen 325 MG TAB PO PRN (09:16)
[2019-12-15] MEDS: Metoprolol Tartrate 25 MG TAB PO SCH (09:16)
[2019-12-15] MEDS: Amoxicillin/Potassium Clav 500 MG TAB PO SCH (09:17)
[2019-12-15] MEDS: hydrALAZINE 25 MG TAB PO SCH (09:17)
[2019-12-15] MEDS: Folic Acid 1 MG TAB PO SCH (09:17)
[2019-12-15 11:31] VITALS: BP 168/74; TEMP 97.5
--- NOTE | 2019-12-15 13:32 | CT ---
CT neck soft tissues noncontrast: DATE: 12/15/2019 HISTORY: 53-year-old female follow-up retropharyngeal edema COMPARISON: 12/07/2019 FINDINGS: The previously demonstrated severe retropharyngeal soft tissue edema, suggestive of phlegmon, extendi ng from the level of the clivus to approximately C5 level, has decreased in volume. Again noted are the tortuous, medialized retropharyngeal courses of the bilateral distal common carotid arteries and internal carotid arteries, contributing to the increased anteroposterior dimension of the soft tissues anterior to the spine and posterior to the hypopharynx and pharynx. There is no gas in the re tropharyngeal space. The anasarca in the soft tissues of the bilateral breasts and around the chest, is again noted. Again noted is the large volume right pleural effusion that reaches the right apex, and the smaller left pleural effusion. Again noted is the large single level bridging osteophytes protruding into the prevertebral space at the C5-6 level. No destructive osseous lesion i dentified. Lower trachea and sushil are mildly narrowed. Some narrowing of the laryngeal supraglottic airway by the combination of the medialized internal carotid arteries and the edema in t he retropharyngeal space. Hypopharynx is effaced. Normal thickness of epiglottitis. No cervical lymphadenopathy by size criteria. Within the limitations of a noncontrast scan, no obvious gross abno rmality identified involving parotid, curator herbarium, parapharyngeal, submandibular, and posterior cervical, spaces. IMPRESSION: 1. Significant interval improvement in the retropharyngeal edema. 2. Bilateral pleural effusions, right greater than left, and anasarca, remain. 3. Tortuous, medialized, retropharyngeal courses of the bilateral common and internal carotid arterie s.
--- NOTE | 2019-12-15 16:29 | DIS ---
DATE OF ADMISSION: 12/05/2019 DATE OF DISCHARGE: 12/15/2019 DISCHARGE DIAGNOSES: 1. Acute hypoxic respiratory failure secondary to right-sided pleural effusion. 2. Expiratory stridor. 3. Left leg cellulitis. 4. Acute kidney injury. 5. Hyperkalemia. 6. Folate deficiency anemia. 7. Morbid obesity. DISCHARGE MEDICATIONS: 1. Fluoxetine 40 mg daily. 2. Lasix 20 mg daily. 3. Norvasc 5 mg daily. 4. Lipitor 40 mg at bedtime. 5. Vitamin D3 1000 units daily. 6. Aspirin 81 mg daily. 7. Metformin 1000 mg twice a day. 8. Tresiba insulin 74 units subcutaneously daily. 9. Rifampin 300 mg twice a day. 10. Losartan 50 mg daily. 11. Lopressor 50 mg twice a day. 12. Folic acid 1 mg daily. 13. Augmentin 500 mg twice a day for 5 days. PHYSICAL EXAMINATION: On the day of discharge, temperature 97.5, pulse 52, blood pressure 152/77, saturating 96% with 1 L oxygen by nasal cannula. The patient is sedated. She is actually sleeping. Her spouse is at the bedside. Discharge plan was discussed with him, and the patient will be discharged to the rehab today. CONSULTS: Critical Care as well as Dr. Hay. HOSPITAL COURSE: Please refer to history and physical for full details and progress note for details. Briefly, 53-year-old obese female admitted with respiratory failure secondary to right-sided pleural effusion. She was hypoxic. Had some diuresis and improved. She also had expiratory stridor. CT of the neck on , showed prevertebral soft tissue swelling and fluid density. It is mostly of inflammatory nature. No sign of infection. ENT evaluated. She had left leg cellulitis. Given her morbid obesity and chronic venous stasis, it required IV antibiotics of vancomycin and Zosyn. Wound culture did grow Enterococcus. She received several days of IV zosyn. On the day of discharge, she is switched to p.o. antibiotic, Augmentin. She also had acute kidney injury, and that is improved. She has folate deficiency, for which supplement was given. The patient needs ongoing aggressive physical therapy. She will be transferred to the rehab today. DISCHARGE INSTRUCTIONS: ACTIVITY: As tolerated. DIET: Healthy heart diet. FOLLOWUP: Follow up with primary care physician in 1 week after the rehab. Job ID: [id number] MTDD
--- NOTE | 2019-12-16 22:21 | PQF ---
[employer] Rec[employer]iter Crystal Reports Winform Viewer JUNITO MARTINEZDAMONROSSY [id number] [facility] [id number] CLINICAL DOCUMENTATION CLARIFICATION FORM: POST DISCHARGE Addendum to original discharge summary date: ____ Late entry note date: __ DATE: 12/16/19 ATTN:Rossy Gomes Please exercise your independent, professional judgment in responding to the clarification form. Clinical indicators are provided on the bottom of this form for your review Can you please further clarify if Cellulitis is due to DM or not? Please check appropriate box(s): [ ] Cellulitis due to Diabetes [ ] Cellulitis not due to Diabetes [ x ] Other diagnosis please specify_diabetes and obesity [ ] Unable to determine In addition, please specify: Present on Admission (POA): [ x ] Yes [ ] No [ ] Unable to determine For continuity of documentation, please document condition throughout progress notes and discharge summary. Thank You. CLINICAL INDICATORS - SIGNS / SYMPTOMS / LABS H and P pg.1- redness of the right leg with weeping for the last more than 1 week H and P pg.3- right lower extremity cellulitis Hospitalist PN pg.6- wound culture shows enterococcus Laboratory -POC Glucose: 124H, 133H, 112H, 137H, 177H, 165H H and P pg.1- the patient had diabetic left foot with osteomyelitis, for which the patient has resection of the toe RISKS: Diabetic left foot- H and P pg.1 Bed bound for the last 1 year- H and P pg.2 HERNESTO on CKD3- H and P pg.3 HTN- H and P pg.3 Morbid obesity- H and P pg.3 PVD- Consult pg.1 Neuropathy- Consult Dr. Hay pg.1- Chronic Charcot arthropathy-Consult Dr. Hay pg.1 TREATMENT: IV Fluids- MAR IV Antibiotics- MAR Infectious Consult Dr. Hay 12/13 Insulin- MAR Vascular Ultrasound 12/03 Glucose monitoring - Laboratory (This form is maintained as a part of the permanent medical record) 2014 [email or web address], [email or web address]. All Rights Reserved [email or web address]
--- NOTE | 2019-12-17 15:03 | EKG ---
Test Reason : Blood Pressure : / mmHG Vent. Rate : 084 BPM Atrial Rate : 084 BPM P-R Int : 174 ms QRS Dur : 074 ms QT Int : 366 ms P-R-T Axes : 050 120 032 degrees QTc Int : 432 ms Normal sinus rhythm Low voltage QRS Anterolateral infarct , age undetermined Abnormal ECG Confirmed by DONAVNA JOHNSON, ADAMS ([id number]), copy editor KULWINDER LAMB ([id number]) on 12/17/2019 3:02:35 PM Referred By: Confirmed By:ADAMS GO MD
== END 2019-12-15 13:55 | disposition swing bed (61) | DRG 602 ==
LOC: ERS 21:47 → 2SE 12-05 02:52 → OBSVTOIN 12-05 02:52
PROVIDERS: ADMIT Hospitalist; ATTEND Internal Medicine
DX: L03.115 Cellulitis of right lower limb (principal); J96.01 Acute respiratory failure with hypoxia; I50.33 Acute on chronic diastolic (congestive) heart failure; I13.0 Hypertensive heart and chronic kidney disease with heart failure and stage 1 through stage 4 chronic kidney disease, or unspecified chronic kidney disease; Z68.44 Body mass index [BMI] 60.0-69.9, adult; N17.9 Acute kidney failure, unspecified; E11.628 Type 2 diabetes mellitus with other skin complications; E66.01 Morbid (severe) obesity due to excess calories; F41.9 Anxiety disorder, unspecified; N18.3 Chronic kidney disease, stage 3 (moderate); E11.22 Type 2 diabetes mellitus with diabetic chronic kidney disease; D63.1 Anemia in chronic kidney disease; E87.5 Hyperkalemia; F32.9 Major depressive disorder, single episode, unspecified; D52.9 Folate deficiency anemia, unspecified; E11.51 Type 2 diabetes mellitus with diabetic peripheral angiopathy without gangrene; E78.5 Hyperlipidemia, unspecified; Z74.01 Bed confinement status; Z79.4 Long term (current) use of insulin; Z79.899 Other long term (current) drug therapy; Z79.82 Long term (current) use of aspirin
CPT/HCPCS: 36415; 36416; 70490; 71045; 76770; 80048; 80053; 81001; 82607; 82746; 83735; 83880; 85025; 85027; 85379; 87070; 87077; 87205; 93005; 93010; 93306; 93798; 94640; J0360; J0696; J1650; J1815; J1940; J2405; J2543; J2550; J3370; J3490; J7030

== ENCOUNTER 2020-01-12 10:49 | Inpatient (IN) | payer OTHER ==
--- NOTE | 2020-01-12 11:25 | RAD ---
PORTABLE CHEST 1 VIEW: Date: 01/12/2020 Time: 1116 hours HISTORY: Dyspnea. COMPARISON: 12/24/2019. FINDINGS/IMPRESSION: The heart is enlarged. There is pulmonary vascular congestion with increased density in the right mid and lower lung zones. No pneumothoraces or large effusions are seen. POS: [facility]
[2020-01-12 11:43] LABS: Actual Bicarbonate (HCO3a) 37.9 mEq/L (22-28); Analyzer IN Cardio ER; Base Excess (BEa) 11.3 mEq/L (-2.0 to +3.0); Calcium, Ionized (arterial) 1.14 mmol/L (1.12-1.30); Carboxyhemoglobin (COHb) 0.6 gm% (0.0-3.0); Hemoglobin (Hb) 10.4 g/dL (12.0-16.0); O2 Tension (PaO2), arterial 89.4 mmHg (80.0-100.0); Potassium - ABG Lab 4.24 mmol/L (3.70-5.30); pH, Arterial 7.41 (7.35-7.45)
[2020-01-12 11:44] LABS: CO2 Tension 61.8 mmHg (35.0-45.0)
[2020-01-12 11:45] LABS: Puncture Site RRA
[2020-01-12 12:07] LABS: Bacteria/HPF None Seen HPF (None Seen); Bilirubin Negative (Negative); Blood, Urine Negative (Negative); Clarity Clear (Clear); Glucose, Urine (Dipstick) Normal (Negative); Ketone, Urine Negative (Negative); Leukocyte Negative Leu/uL (Negative); Nitrite Negative (Negative); Protein, Urine (Dipstick) 70 mg/dL (Neg-Trace); RBC/HPF 0-3 HPF (0-3); Specific Gravity, Urine 1.013 (1.002-1.036); Squamous Epithelial 0-3 HPF (0-3); WBC/HPF 0-3 HPF (0-3); pH, Urine 6.5 (5.0-9.0)
[2020-01-12 12:30] LABS: #Basophils 0.1 thou/uL (0.0-0.2); #Eosinphils 0.1 thou/uL (0.0-0.7); #Lymphocytes 0.8 thou/uL (1.20-3.40); #Monocytes 0.6 thou/uL (0.11-0.59); #Neutrophils 6.6 thou/uL (1.40-6.50); %Basophils 0.7 % (0.0-1.0); %Eosinophils 1.5 % (0.0-10.0); %Lymphocytes 9.9 % (21.0-51.0); %Monocytes 7.8 % (0.0-10.0); Hemoglobin 9.9 g/dL (12.0-16.0); Mean Corpuscular HGB CONC 30.8 g/dL (32.0-36.0); Mean Corpuscular Hemoglobin 29.2 pg (27.0-31.0); Mean Corpuscular Volume 94.7 fL (78.0-98.0); Mean Platelet Volume 7.6 fL (7.4-10.4); Platelet Count 270 thou/uL (130-400); RBC Distribution Width 19.6 % (11.5-14.5); Red Blood Cell (RBC) Count 3.38 mill/uL (4.20-5.40); White Blood Cell (WBC) Count 8.2 thou/uL (4.8-10.8)
[2020-01-12 12:50] LABS: ALT (SGPT) 21 U/L (8-55); AST (SGOT) 24 U/L (5-34); Albumin 3.9 g/dL (3.5-5.0); Alkaline Phosphatase 209 U/L (40-110); Anion Gap 13 mmol/L (10-20); BUN (Urea Nitrogen) 48 mg/dL (9.8-20.1); Bilirubin, Total 1.1 mg/dL (0.2-1.2); CK (CPK) 38 U/L (29-168); Calc. Creatinine Clearance 0 mL/min (70-130); Calcium 9.3 mg/dL (7.8-10.44); Carbon Dioxide 36 mmol/L (22-29); Chloride 98 mmol/L (98-107); Estimated GFR-MDRD 33; Globulin 3.1 g/dL (2.4-3.5); Glucose 76 mg/dL (70-105); Lipase 10 U/L (8-78); Potassium 4.4 mmol/L (3.5-5.1); Sodium 143 mmol/L (136-145)
[2020-01-12 13:11] LABS: CKMB 1.7 ng/mL (0-6.6)
[2020-01-12] MEDS ORDERED: Bisacodyl 10 MG SUPP PR PRN (14:53)
[2020-01-12] MEDS ORDERED: Dextrose 50% Abboject 50 ML SYRINGE SLOW IVP PRN (14:53)
[2020-01-12] MEDS ORDERED: Guaifenesin DM 100-10/5 ML UDCUP PO PRN (14:53)
[2020-01-12] MEDS ORDERED: Dextrose 5% in Water 1,000 ML IV PRN (14:53)
[2020-01-12] MEDS ORDERED: Calcium Carbonate 500 MG ChewTAB PO PRN (14:53)
[2020-01-12] MEDS ORDERED: Senokot S 8.6-50 MG TAB PO PRN (14:53)
[2020-01-12] MEDS ORDERED: Ondansetron PF 4 MG/2 ML Vial IVP PRN (14:53)
[2020-01-12] MEDS ORDERED: Acetaminophen 325 MG TAB PO PRN (14:53)
[2020-01-12] MEDS ORDERED: Furosemide 40 MG/4 ML VIAL SLOW IVP SCH (15:00)
--- NOTE | 2020-01-12 15:36 | HP ---
REASON FOR ADMISSION: Acute respiratory failure with hypoxia and hypercarbia. HISTORY OF PRESENTING ILLNESS: The patient gives history of having progressive shortness of breath from last 2 days. She was hospitalized here for right lower extremity cellulitis and was discharged on 12[facility]. The patient has been barely home 6 days now. She does not ambulate. She uses a motorized wheelchair. Has been having cough with expectoration. She is unable to describe the color of her sputum. On arrival, the patient was hypoxic and was placed initially on 2 L nasal cannula and later was placed on BiPAP due to worsening saturations. Has no complaints of chest pain or palpitation. Has left upper extremity edema which she does not recall the reason why. She lives with her . As far as she knows, she was not exposed to COVID. PAST MEDICAL AND SURGICAL HISTORY: Morbid obesity with nearly 390 pounds, likely CHF with diastolic dysfunction, diabetes mellitus type 2, hypertension, underlying sleep apnea which has not been diagnosed, depression, left toe partial amputation, left knee meniscal repair, left lower extremity peripheral vascular disease and sees Dr. Loaiza and has had prior angioplasty. CURRENT MEDICATIONS: The patient is on; 1. Norvasc 5 mg daily. 2. Lasix 20 mg every other day. 3. Levemir 50 units subcu twice daily. 4. Atorvastatin 20 mg daily. 5. Farxiga 10 mg daily. 6. Fluoxetine 40 mg daily. 7. Losartan 25 mg daily. 8. Tresiba 74 units subcu daily. 9. Aspirin 81 mg daily. ALLERGIES: NO KNOWN DRUG ALLERGIES. PERSONAL HISTORY: Does not abuse alcohol or drugs. No history of smoking. She lives with her . The patient is essentially bed bound and uses a motorized wheelchair to ambulate. FAMILY HISTORY: Mother has had history of coronary artery disease, stroke, and diabetes. Father has history of COPD. CODE STATUS: Full. Power of chief reservoir engineering is her . PHYSICAL EXAMINATION: GENERAL: The patient is a 54-year-old female, who is currently in moderate respiratory distress. VITAL SIGNS: Blood pressure 190/100, pulse 74 per minute, respiratory rate 20 per minute, temperature 97.7 degrees Fahrenheit, saturating 92% on BiPAP. NECK: Supple. No elevated JVD. HEENT: Eyes; extraocular muscles intact. Pupils reacting to light. Oral cavity, mucous membranes are dry. No exudates or congestion. CARDIOVASCULAR SYSTEM: S1 and S2 heard. Regular rhythm. RESPIRATORY SYSTEM: Air entry 1+ bilateral. Distant breath sounds. ABDOMEN: The patient's abdomen is large due to her morbid obesity status. There is also edema of the abdominal wall. No rigidity or guarding. Bowel sounds are heard. EXTREMITIES: The patient has chronic lymphedema in both lower extremities, which appears to have decreased when compared to prior notes of her having severe edema in the past. Peripheral pulses are barely palpable. No ischemic ulcers or gangrene. CENTRAL NERVOUS SYSTEM: No gross focal deficits noted. The patient is lethargic, but responds well to verbal questions. PSYCHIATRIC SYSTEM: No obvious hallucinations or delusions. LABORATORY DATA: White count of 8, H and H of 10 and 32, platelet count 270, MCV is 94 with 80% neutrophils. Blood gas done shows a pH of 7.41, pCO2 of 61, PO2 of 89, serum bicarb 36, BUN 48, creatinine 1.6, serum glucose 76. Alkaline phosphatase 209, AST and ALT within normal limits. BNP 624. IMAGING STUDIES: Chest x-ray done shows pulmonary vascular congestion. EKG done shows sinus rhythm at 71 beats per minute. The low voltage EKG likely due to body habitus. CLINICAL IMPRESSION AND PLAN: The patient will be admitted to IM for acute respiratory failure with hypoxia and hypercarbia. Ms. Davila is morbidly obese and weighs nearly 400 pounds. The patient has been having chronic anasarca during her last hospitalization and had diuresis done which led to acute kidney injury as well. She also had history of cellulitis during her last hospitalization. Ms. Davila is essentially bed bound and mobilizes herself in a wheelchair. She also might have underlying obstructive sleep apnea and obesity hypoventilation syndrome, which has been undiagnosed. Her overall prognosis is guarded. I have discussed code status with her and she would like to be a full code for now, and once she comes off BiPAP, she will talk to her and discuss if she wants to be a DNR in the future. She has not made up her mind as of now. We will continue her on aspirin, Lipitor, doxycycline, DuoNebs, Lasix 40 mg at 6 a.m. and 2 p.m. and one dose of 40 mg now. We will also continue her hydralazine 25 mg three times daily, Levemir, Lopressor, Ultram p.r.n., a small dose of Solu-Medrol. Her overall prognosis is guarded. I have spoken to Dr. Dominguez for Pulmonary consultation. Dr. Granados has seen her in the past. Job ID: [id number] MTDD
--- NOTE | 2020-01-12 16:06 | CT ---
CTA CHEST WITH CONTRAST: Date: 01/12/2020 Axial tomograms with multiplanar reconstruction following a pulmonary angio protocol. INDICATION: Hypoxia. Possible seizure disorder. Shortness of breath. FINDINGS: Pulmonary arteries are well opacified. Evaluation is limited due to soft tissue attenuation from body habitus. Pulmonary arteries appear well opacified and no evidence of pulmonary embolus identified. Thoracic aorta is unremarkable. There are bilateral pleural effusions slightly larger on the right. These effusions are producing den se compressive atelectasis bilaterally. The upper lung norris are aerated. There are diffuse ground-g lass opacities in the upper lungs suggesting mild edema. Mild vascular congestion. Images through upper abdomen unremarkable. IMPRESSION: 1. No evidence of pulmonary embolus. 2. Moderate size bilateral effusions, slightly larger on the right, with bibasilar compressive atele ctasis. 3. Mild vascular congestion. Some hazy ground-glass opacity in the upper lungs with some streaky ate lectasis in the left upper lobe. This diffuse ground-glass haziness is nonspecific and could represen t mild edema or alveolitis. It does not have the appearance of focal ground-glass infiltrates. POS: [facility]
[2020-01-12 17:42] LABS: Troponin I 0.045 ng/mL (< 0.028)
[2020-01-12 20:25] LABS: Troponin I 0.046 ng/mL (< 0.028)
[2020-01-12] MEDS ORDERED: Furosemide 40 MG/4 ML VIAL ONE (20:31)
[2020-01-12] MEDS: Heparin 5,000 UNITS/ML VIAL SC SCH (20:35)
[2020-01-12] MEDS: hydrALAZINE 25 MG TAB PO SCH (20:42)
[2020-01-12] MEDS: Arformoterol 15 MCG/2 ML NEB NEB SCH (20:46)
[2020-01-13 00:15] VITALS: BMI 57.2
[2020-01-13] MEDS: Heparin 5,000 UNITS/ML VIAL SC SCH ×4 (01:54→20:26)
[2020-01-13] MEDS: hydrALAZINE 25 MG TAB PO SCH ×4 (01:55→20:25)
[2020-01-13] MEDS: Metoprolol Tartrate 25 MG TAB PO SCH ×3 (01:56→20:26)
[2020-01-13] MEDS: Doxycycline 100 MG CAP PO SCH ×3 (01:58→20:26)
[2020-01-13] MEDS: methylPREDNISolone Sod Succ 40 MG VIAL IVP SCH ×3 (01:58→20:27)
[2020-01-13] MEDS: Atorvastatin Calcium 40 MG TAB PO SCH ×2 (01:58→20:26)
[2020-01-13 03:34] LABS: Anion Gap 13 mmol/L (10-20); BUN (Urea Nitrogen) 45 mg/dL (9.8-20.1); Calc. Creatinine Clearance 97 mL/min (70-130); Calcium 8.8 mg/dL (7.8-10.44); Carbon Dioxide 37 mmol/L (22-29); Chloride 97 mmol/L (98-107); Estimated GFR-MDRD 32; Glucose 93 mg/dL (70-105); Potassium 4.2 mmol/L (3.5-5.1); Sodium 143 mmol/L (136-145)
[2020-01-13] MEDS: Furosemide 40 MG/4 ML VIAL SLOW IVP SCH ×2 (05:45→16:11)
[2020-01-13 06:16] LABS: #Eosinphils 0.1 thou/uL (0.0-0.7); #Lymphocytes 0.5 thou/uL (1.20-3.40); #Monocytes 0.3 thou/uL (0.11-0.59); #Neutrophils 7.9 thou/uL (1.40-6.50); %Basophils 0.5 % (0.0-1.0); %Eosinophils 0.7 % (0.0-10.0); %Lymphocytes 5.9 % (21.0-51.0); %Monocytes 3.4 % (0.0-10.0); %Neutrophils 89.5 % (42.0-75.0); Hemoglobin 9.7 g/dL (12.0-16.0); Mean Corpuscular HGB CONC 30.2 g/dL (32.0-36.0); Mean Corpuscular Hemoglobin 28.7 pg (27.0-31.0); Mean Corpuscular Volume 94.8 fL (78.0-98.0); Mean Platelet Volume 7.4 fL (7.4-10.4); Platelet Count 258 thou/uL (130-400); RBC Distribution Width 19.5 % (11.5-14.5); Red Blood Cell (RBC) Count 3.39 mill/uL (4.20-5.40); White Blood Cell (WBC) Count 8.8 thou/uL (4.8-10.8)
[2020-01-13] MEDS: Arformoterol 15 MCG/2 ML NEB NEB SCH ×2 (07:23→19:57)
[2020-01-13] MEDS ORDERED: INSULIN DEGLUDEC 40 UNIT SQ SCH (09:00)
[2020-01-13] MEDS: traMADol HCl 50 MG TAB PO PRN (09:45)
[2020-01-13] MEDS: FLUoxetine HCl 20 MG CAP PO SCH (09:47)
[2020-01-13] MEDS: Metolazone 5 MG TAB PO SCH (09:48)
[2020-01-13] MEDS: Aspirin 81 mg Enteric Coated Tablet PO SCH (09:48)
[2020-01-13] MEDS: Folic Acid 1 MG TAB PO SCH (09:49)
[2020-01-13] MEDS: Cholecalciferol 1,000 UNITS (25 MCG) TAB PO SCH (09:49)
[2020-01-13] MEDS: Insulin Glargine 40 UNITS in Pre-Filled Syringe 1 EACH SC SCH (09:49)
--- NOTE | 2020-01-13 13:43 | PDOC.HOSPP ---
- Subjective Encounter Date: 01/13/20 Encounter Time: 08:30 Subjective: is awake and oriented, on nasal canula this am no new symptoms - Objective Vital Signs & Weight: Vital Signs (12 hours) Temp Pulse Pulse Resp BP Pulse Ox Pulse Ox 01/13/20 13:34 75 18 100 01/13/20 11:00 97.6 F 01/13/20 09:48 82 159/81 H 01/13/20 08:44 79 92 L 01/13/20 08:00 98 01/13/20 07:23 71 19 01/13/20 07:19 97.1 F L 01/13/20 04:00 95 01/13/20 03:45 97.6 F 01/13/20 02:38 77 18 96 01/13/20 02:27 79 24 H 98 01/13/20 01:55 78 Weight Weight 354 lb 14.4 oz Most Recent Monitor Data Heart Rate from ECG 79 NIBP 146/72 NIBP BP-Mean 96 Respiration from ECG 21 SpO2 93 I&O: 01/12/20 01/13/20 01/14/20 06:59 06:59 06:59 Intake Total 100 Output Total 1750 Balance -1650 Result Diagrams: 01/13/20 06:07 01/13/20 03:15 Additional Labs: Accuchecks 01/13/20 01/13/20 01/13/20 10:33 08:19 06:42 POC Glucose 154 H 100 97 01/13/20 01:33 POC Glucose 109 Hospitalist ROS - Medication Medications: Active Medications Generic Name Dose Route Start Last Admin Trade Name Freq PRN Reason Stop Dose Admin Albuterol/Ipratropium 3 ml 01/12/20 19:00 01/13/20 13:34 Duoneb NEB 3 ml [id number] BRITTANY Administration Arformoterol Tartrate 15 mcg 01/12/20 18:30 01/13/20 07:23 Brovana NEB 15 mcg BID-RT BRITTANY Administration Aspirin 81 mg 01/13/20 09:00 01/13/20 09:48 Ecotrin PO 81 mg DAILY BRITTANY Administration Atorvastatin Calcium 40 mg 01/12/20 21:00 01/13/20 01:58 Lipitor PO 40 mg HS BRITTANY Administration Cholecalciferol 1,000 units 01/13/20 09:00 01/13/20 09:49 Vitamin D3 PO 1,000 units DAILY BRITTANY Administration Doxycycline Hyclate 100 mg 01/12/20 21:00 01/13/20 09:48 Vibramycin PO 100 mg BID BRITTANY Administration Fluoxetine HCl 40 mg 01/13/20 09:00 01/13/20 09:47 Prozac PO 40 mg DAILY BRITTANY Administration Folic Acid 1 mg 01/13/20 09:00 01/13/20 09:49 Folvite PO 1 mg DAILY BRITTANY Administration Furosemide 40 mg 01/13/20 06:00 01/13/20 05:45 Lasix SLOW IVP 40 mg 0600,1400 BRITTANY Administration Heparin Sodium (Porcine) 5,000 units 01/12/20 15:00 01/13/20 09:49 Heparin SC 5,000 units TID BRITTANY Administration Hydralazine HCl 25 mg 01/12/20 15:00 01/13/20 09:48 Apresoline PO 25 mg TID BRITTANY Administration Insulin Glargine 40 units/ 0.4 mls @ 0 mls/hr 01/13/20 09:00 01/13/20 09:49 Miscellaneous Medication SC 0.4 mls QAM BRITTANY Administration Isosorbide Mononitrate 60 mg 01/13/20 09:00 01/13/20 09:48 Imdur Er PO 60 mg DAILY BRITTANY Administration Methylprednisolone Sodium Succinate 20 mg 01/12/20 21:00 01/13/20 09:50 Solu-Medrol IVP 20 mg Q12HR BRITTANY Administration Metolazone 5 mg 01/13/20 08:30 01/13/20 09:48 Zaroxolyn PO 5 mg [id number] BRITTANY Administration Metoprolol Tartrate 12.5 mg 01/12/20 21:00 01/13/20 09:46 Lopressor PO 12.5 mg BID BRITTANY Administration Tramadol HCl 50 mg 01/12/20 14:53 01/13/20 09:45 Ultram PO 50 mg Q8H PRN Administration Moderate Pain (4-6) - Exam General Appearance: awake alert Eye: PERRL, anicteric sclera ENT: no oropharyngeal lesions, dry oral mucosa Neck: supple, no JVD Heart: RRR, no murmur Respiratory: no rales, rhonchi, wheezes Gastrointestinal: soft, non-tender, non-distended, normal bowel sounds Gastrointestinal - other findings: abd wall edema Extremities: no cyanosis, 1+ LE edema Neurological: cranial nerve grossly intact, no focal deficits Psychiatric: normal affect, A&O x 3 Hosp A/P (1) Acute respiratory failure with hypoxia and hypercapnia Code(s): J96.01 - ACUTE RESPIRATORY FAILURE WITH HYPOXIA; J96.02 - ACUTE RESPIRATORY FAILURE WITH HYPERCAPNIA Status: Acute (2) Obesity hypoventilation syndrome Code(s): E66.2 - MORBID (SEVERE) OBESITY WITH ALVEOLAR HYPOVENTILATION Status : Suspected (3) KEREN (obstructive sleep apnea) Code(s): G47.33 - OBSTRUCTIVE SLEEP APNEA (ADULT) (PEDIATRIC) Status: Suspected (4) CKD (chronic kidney disease) stage 3, GFR 30-59 ml/min Status: Chronic (5) Charcot ankle Code(s): M14.679 - CHARCOT'S JOINT, UNSPECIFIED ANKLE AND FOOT Status: Chronic (6) DM type 2 (diabetes mellitus, type 2) Status: Chronic Qualifiers: Diabetes mellitus skilled nursing insulin use: with 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 Diabetes mellitus complication status: with kidney complications Diabetes mellitus complication detail: with chronic kidney disease Chronic kidney disease stage : stage 3 (moderate) Qualified Code(s): E11.22 - Type 2 diabetes mellitus with diabetic chronic kidney disease; N18.3 - Chronic kidney disease, stage 3 ( moderate); Z79.4 - 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 of 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 (7) Depression Code(s): F32.9 - MAJOR DEPRESSIVE DISORDER, SINGLE EPISODE, UNSPECIFIED Status : Chronic Qualifiers: Depression Type: major depressive disorder (8) HLD (hyperlipidemia) Code(s): E78.5 - HYPERLIPIDEMIA, UNSPECIFIED Status: Chronic Qualifiers: (9) HTN (hypertension) Code(s): I10 - ESSENTIAL (PRIMARY) HYPERTENSION Status: Chronic Qualifiers: (10) Morbid obesity Code(s): E66.01 - MORBID (SEVERE) OBESITY DUE TO EXCESS CALORIES Status: Chronic - Plan has come off bipap this am, likely will need home cpap needs to get sleep study done as outpt, likely has both obesity hypovent syndrome and sleep apnea continue steroids, lasix, doxy, nebs, lopressor, cozaar and lantus left UE edema is resolving Counselled to mobilize more with PT prognosis guarded may tx to med floor if cpap at night can be arranged patient needs to buy autopap until she can have sleep studies done
[2020-01-13] MEDS: HumaLOG 300 UNITS/3 ML VIAL SC PRN ×2 (17:24→20:29)
[2020-01-14 03:36] LABS: Anion Gap 14 mmol/L (10-20); BUN (Urea Nitrogen) 50 mg/dL (9.8-20.1); Calc. Creatinine Clearance 91 mL/min (70-130); Calcium 9.2 mg/dL (7.8-10.44); Carbon Dioxide 37 mmol/L (22-29); Chloride 96 mmol/L (98-107); Estimated GFR-MDRD 30; Glucose 260 mg/dL (70-105); Potassium 4.7 mmol/L (3.5-5.1); Sodium 142 mmol/L (136-145)
[2020-01-14] MEDS: HumaLOG 300 UNITS/3 ML VIAL SC PRN ×4 (05:28→22:04)
[2020-01-14] MEDS: Furosemide 40 MG/4 ML VIAL SLOW IVP SCH (05:28)
[2020-01-14] MEDS: Arformoterol 15 MCG/2 ML NEB NEB SCH ×2 (07:25→17:32)
[2020-01-14] MEDS: Insulin Glargine 40 UNITS in Pre-Filled Syringe 1 EACH SC SCH (10:21)
[2020-01-14] MEDS: hydrALAZINE 25 MG TAB PO SCH ×3 (10:23→22:03)
[2020-01-14] MEDS: FLUoxetine HCl 20 MG CAP PO SCH (10:23)
[2020-01-14] MEDS: Folic Acid 1 MG TAB PO SCH (10:23)
[2020-01-14] MEDS: Aspirin 81 mg Enteric Coated Tablet PO SCH (10:23)
[2020-01-14] MEDS: Cholecalciferol 1,000 UNITS (25 MCG) TAB PO SCH (10:25)
[2020-01-14] MEDS: Doxycycline 100 MG CAP PO SCH ×2 (10:25→22:30)
[2020-01-14] MEDS: Metoprolol Tartrate 25 MG TAB PO SCH ×2 (10:25→22:00)
[2020-01-14] MEDS: methylPREDNISolone Sod Succ 40 MG VIAL IVP SCH (10:25)
[2020-01-14] MEDS: Heparin 5,000 UNITS/ML VIAL SC SCH ×3 (10:27→22:03)
[2020-01-14] MEDS: Nystatin Powder 15 GM BOT TOP SCH (10:28)
[2020-01-14] MEDS: Furosemide 40 MG TAB PO SCH (14:18)
[2020-01-14] MEDS: traMADol HCl 50 MG TAB PO PRN ×2 (14:18→22:30)
[2020-01-14] MEDS: Atorvastatin Calcium 40 MG TAB PO SCH (22:00)
[2020-01-15 04:18] LABS: Anion Gap 13 mmol/L (10-20); BUN (Urea Nitrogen) 50 mg/dL (9.8-20.1); Calc. Creatinine Clearance 97 mL/min (70-130); Calcium 9.1 mg/dL (7.8-10.44); Carbon Dioxide 37 mmol/L (22-29); Chloride 98 mmol/L (98-107); Estimated GFR-MDRD 32; Glucose 83 mg/dL (70-105); Potassium 3.9 mmol/L (3.5-5.1); Sodium 144 mmol/L (136-145)
[2020-01-15] MEDS: Arformoterol 15 MCG/2 ML NEB NEB SCH ×2 (06:10→19:01)
[2020-01-15] MEDS: predniSONE 20 MG TAB PO SCH (09:17)
[2020-01-15] MEDS: Cholecalciferol 1,000 UNITS (25 MCG) TAB PO SCH (09:17)
[2020-01-15] MEDS: FLUoxetine HCl 20 MG CAP PO SCH (09:17)
[2020-01-15] MEDS: Aspirin 81 mg Enteric Coated Tablet PO SCH (09:17)
[2020-01-15] MEDS: Heparin 5,000 UNITS/ML VIAL SC SCH ×3 (09:18→22:33)
[2020-01-15] MEDS: Folic Acid 1 MG TAB PO SCH (09:18)
[2020-01-15] MEDS: Furosemide 40 MG TAB PO SCH ×2 (09:18→14:59)
[2020-01-15] MEDS: hydrALAZINE 25 MG TAB PO SCH ×3 (09:19→22:32)
[2020-01-15] MEDS: Nystatin Powder 15 GM BOT TOP SCH (09:20)
[2020-01-15] MEDS: Metoprolol Tartrate 25 MG TAB PO SCH ×2 (09:20→22:36)
[2020-01-15] MEDS: Insulin Glargine 40 UNITS in Pre-Filled Syringe 1 EACH SC SCH (09:21)
[2020-01-15] MEDS: Doxycycline 100 MG CAP PO SCH ×2 (10:16→22:32)
--- NOTE | 2020-01-15 12:53 | PDOC.HOSPP ---
- Subjective Encounter Date: 01/15/20 Encounter Time: 11:30 Subjective: awake, oriented well no chest pain or palp - Objective Vital Signs & Weight: Vital Signs (12 hours) Temp Pulse Resp BP BP Pulse Ox 01/15/20 11:55 97.7 F 67 20 140/66 94 L 01/15/20 09:19 67 133/63 01/15/20 08:00 97.7 F 67 20 133/63 94 L 01/15/20 06:10 63 12 01/15/20 04:00 97.7 F 63 16 140/65 95 Weight Weight 354 lb 14.4 oz Most Recent Monitor Data Heart Rate from ECG 68 NIBP 170/80 NIBP BP-Mean 110 Respiration from ECG 22 SpO2 96 I&O: 01/14/20 01/15/20 01/16/20 06:59 06:59 06:59 Intake Total 590 340 Output Total 3150 2700 Balance -0280 -8310 Result Diagrams: 01/13/20 06:07 01/15/20 03:42 Additional Labs: Accuchecks 01/15/20 01/14/20 01/14/20 12:02 20:34 16:45 POC Glucose 120 H 206 H 219 H Hospitalist ROS - Medication Medications: Active Medications Generic Name Dose Route Start Last Admin Trade Name Freq PRN Reason Stop Dose Admin Albuterol/Ipratropium 3 ml 01/12/20 19:00 01/15/20 06:10 Duoneb NEB 3 ml [id number] BRITTANY Administration Arformoterol Tartrate 15 mcg 01/12/20 18:30 01/15/20 06:10 Brovana NEB 15 mcg BID-RT BRITTANY Administration Aspirin 81 mg 01/13/20 09:00 01/15/20 09:17 Ecotrin PO 81 mg DAILY BRITTANY Administration Atorvastatin Calcium 40 mg 01/12/20 21:00 01/14/20 22:00 Lipitor PO 40 mg HS BRITTANY Administration Cholecalciferol 1,000 units 01/13/20 09:00 01/15/20 09:17 Vitamin D3 PO 1,000 units DAILY BRITTANY Administration Doxycycline Hyclate 100 mg 01/12/20 21:00 01/15/20 10:16 Vibramycin PO 100 mg BID BRITTANY Administration Fluoxetine HCl 40 mg 01/13/20 09:00 01/15/20 09:17 Prozac PO 40 mg DAILY BRITTANY Administration Folic Acid 1 mg 01/13/20 09:00 01/15/20 09:18 Folvite PO 1 mg DAILY BRITTANY Administration Furosemide 40 mg 01/14/20 14:00 01/15/20 09:18 Lasix PO 40 mg 0900,1400 BRITTANY Administration Heparin Sodium (Porcine) 5,000 units 01/12/20 15:00 01/15/20 09:18 Heparin SC 5,000 units TID BRITTANY Administration Hydralazine HCl 25 mg 01/12/20 15:00 01/15/20 09:19 Apresoline PO 25 mg TID BRITTANY Administration Insulin Glargine 40 units/ 0.4 mls @ 0 mls/hr 01/13/20 09:00 01/15/20 09:21 Miscellaneous Medication SC 0.4 mls QAM BRITTANY Administration Insulin Human Lispro 0 units 01/12/20 14:53 01/14/20 16:45 Humalog SC 4 units .MODERATE SLIDING SC PRN Administration Moderate Correctional Scale Insulin Human Lispro 0 units 01/12/20 14:53 01/14/20 22:04 Humalog SC 2 unit .BEDTIME SLIDING SC PRN Administration Bedtime Correctional Scale Isosorbide Mononitrate 60 mg 01/13/20 09:00 01/15/20 09:19 Imdur Er PO 60 mg DAILY BRITTANY Administration Metolazone 5 mg 01/13/20 08:30 01/13/20 09:48 Zaroxolyn PO 5 mg [id number] BRITTANY Administration Metoprolol Tartrate 12.5 mg 01/12/20 21:00 01/15/20 09:20 Lopressor PO 12.5 mg BID [facility] Administration Nystatin 0 gm 01/14/20 09:00 01/15/20 09:20 Mycostatin Powder TOP 1 applic DAILY BRITTANY Administration Prednisone 20 mg 01/15/20 08:00 01/15/20 09:17 Prednisone PO 20 mg QAM-WM BRITTANY Administration Senna/Docusate Sodium 2 tab 01/12/20 14:53 01/14/20 14:18 Senokot S PO 2 tab BIDPRN PRN Administration Constipation Tramadol HCl 50 mg 01/12/20 14:53 01/14/20 22:30 Ultram PO 50 mg Q8H PRN Administration Moderate Pain (4-6) - Exam General Appearance: awake alert Eye: PERRL, anicteric sclera ENT: no oropharyngeal lesions, moist mucosa Neck: supple, no JVD Heart: RRR, no murmur Respiratory: no wheezes, no rales Gastrointestinal: soft, non-tender, non-distended, normal bowel sounds Extremities: no cyanosis, 1+ LE edema Neurological: cranial nerve grossly intact, no focal deficits Psychiatric: A&O x 3 Hosp A/P (1) Acute respiratory failure with hypoxia and hypercapnia Code(s): J96.01 - ACUTE RESPIRATORY FAILURE WITH HYPOXIA; J96.02 - ACUTE RESPIRATORY FAILURE WITH HYPERCAPNIA Status: Acute (2) Obesity hypoventilation syndrome Code(s): E66.2 - MORBID (SEVERE) OBESITY WITH ALVEOLAR HYPOVENTILATION Status : Suspected (3) KEREN (obstructive sleep apnea) Code(s): G47.33 - OBSTRUCTIVE SLEEP APNEA (ADULT) (PEDIATRIC) Status: Suspected (4) CKD (chronic kidney disease) stage 3, GFR 30-59 ml/min Status: Chronic (5) Charcot ankle Code(s): M14.679 - CHARCOT'S JOINT, UNSPECIFIED ANKLE AND FOOT Status: Chronic (6) DM type 2 (diabetes mellitus, type 2) Status: Chronic Qualifiers: Diabetes mellitus mcc insulin use: with mcc use Diabetes mellitus complication status: with kidney complications Diabetes mellitus complication detail: with chronic kidney disease Chronic kidney disease stage : stage 3 (moderate) Qualified Code(s): E11.22 - Type 2 diabetes mellitus with diabetic chronic kidney disease; N18.3 - Chronic kidney disease, stage 3 ( moderate); Z79.4 - shelter (current) use of insulin (7) Depression Code(s): F32.9 - MAJOR DEPRESSIVE DISORDER, SINGLE EPISODE, UNSPECIFIED Status : Chronic Qualifiers: Depression Type: major depressive disorder (8) HLD (hyperlipidemia) Code(s): E78.5 - HYPERLIPIDEMIA, UNSPECIFIED Status: Chronic Qualifiers: (9) HTN (hypertension) Code(s): I10 - ESSENTIAL (PRIMARY) HYPERTENSION Status: Chronic Qualifiers: (10) Morbid obesity Code(s): E66.01 - MORBID (SEVERE) OBESITY DUE TO EXCESS CALORIES Status: Chronic - Plan is on cpap when she sleeps needs to get sleep study done as outpt, likely has both obesity hypovent syndrome and sleep apnea continue steroids, lasix, doxy, nebs, lopressor, cozaar and lantus left UE edema is resolving Counselled to mobilize more with PT prognosis guarded will need home O2 for dc plan, she also mentions that she needs hosp bed, dorothy lift etc for home use?, await case mgmt consultation.
[2020-01-15] MEDS: HumaLOG 300 UNITS/3 ML VIAL SC PRN ×2 (16:13→22:34)
[2020-01-15] MEDS: traMADol HCl 50 MG TAB PO PRN (22:32)
[2020-01-15] MEDS: Atorvastatin Calcium 40 MG TAB PO SCH (22:42)
[2020-01-16 04:56] LABS: BUN (Urea Nitrogen) 50 mg/dL (9.8-20.1); Calc. Creatinine Clearance 87 mL/min (70-130); Calcium 9.2 mg/dL (7.8-10.44); Estimated GFR-MDRD 29; Glucose 172 mg/dL (70-105)
[2020-01-16 05:05] LABS: Anion Gap 16 mmol/L (10-20); Carbon Dioxide 34 mmol/L (22-29); Chloride 98 mmol/L (98-107); Potassium 4.1 mmol/L (3.5-5.1); Sodium 144 mmol/L (136-145)
[2020-01-16] MEDS: traMADol HCl 50 MG TAB PO PRN (06:28)
[2020-01-16] MEDS: HumaLOG 300 UNITS/3 ML VIAL SC PRN ×2 (06:28→16:55)
[2020-01-16] MEDS: Arformoterol 15 MCG/2 ML NEB NEB SCH ×2 (07:25→18:28)
[2020-01-16] MEDS: Metoprolol Tartrate 25 MG TAB PO SCH ×2 (09:59→21:12)
[2020-01-16] MEDS: Cholecalciferol 1,000 UNITS (25 MCG) TAB PO SCH (09:59)
[2020-01-16] MEDS: Aspirin 81 mg Enteric Coated Tablet PO SCH (09:59)
[2020-01-16] MEDS: Metolazone 5 MG TAB PO SCH (09:59)
[2020-01-16] MEDS: Insulin Glargine 40 UNITS in Pre-Filled Syringe 1 EACH SC SCH (10:01)
[2020-01-16] MEDS: hydrALAZINE 25 MG TAB PO SCH ×3 (10:03→21:12)
[2020-01-16] MEDS: Folic Acid 1 MG TAB PO SCH (10:03)
[2020-01-16] MEDS: predniSONE 20 MG TAB PO SCH (10:03)
[2020-01-16] MEDS: Furosemide 40 MG TAB PO SCH ×2 (10:03→16:56)
[2020-01-16] MEDS: Heparin 5,000 UNITS/ML VIAL SC SCH ×3 (10:04→21:09)
[2020-01-16] MEDS: Nystatin Powder 15 GM BOT TOP SCH (10:05)
[2020-01-16] MEDS: FLUoxetine HCl 20 MG CAP PO SCH (11:40)
[2020-01-16] MEDS: Doxycycline 100 MG CAP PO SCH ×2 (12:16→21:10)
[2020-01-16] MEDS: Atorvastatin Calcium 40 MG TAB PO SCH (21:10)
[2020-01-17 04:30] LABS: Anion Gap 13 mmol/L (10-20); BUN (Urea Nitrogen) 50 mg/dL (9.8-20.1); Calc. Creatinine Clearance 88 mL/min (70-130); Calcium 9.3 mg/dL (7.8-10.44); Carbon Dioxide 36 mmol/L (22-29); Chloride 97 mmol/L (98-107); Estimated GFR-MDRD 29; Glucose 122 mg/dL (70-105); Potassium 4.1 mmol/L (3.5-5.1); Sodium 142 mmol/L (136-145)
[2020-01-17 07:34] VITALS: BP 137/91; TEMP 97.4
[2020-01-17] MEDS: Arformoterol 15 MCG/2 ML NEB NEB SCH (07:34)
[2020-01-17] MEDS: FLUoxetine HCl 20 MG CAP PO SCH (09:38)
[2020-01-17] MEDS: Heparin 5,000 UNITS/ML VIAL SC SCH ×2 (09:38→14:36)
[2020-01-17] MEDS: Insulin Glargine 40 UNITS in Pre-Filled Syringe 1 EACH SC SCH (09:38)
[2020-01-17] MEDS: Doxycycline 100 MG CAP PO SCH (09:38)
[2020-01-17] MEDS: hydrALAZINE 25 MG TAB PO SCH ×2 (09:39→14:35)
[2020-01-17] MEDS: Furosemide 40 MG TAB PO SCH ×2 (09:39→14:35)
[2020-01-17] MEDS: Aspirin 81 mg Enteric Coated Tablet PO SCH (09:39)
[2020-01-17] MEDS: predniSONE 20 MG TAB PO SCH (09:39)
[2020-01-17] MEDS: Metoprolol Tartrate 25 MG TAB PO SCH (09:39)
[2020-01-17] MEDS: Folic Acid 1 MG TAB PO SCH (09:39)
[2020-01-17] MEDS: Cholecalciferol 1,000 UNITS (25 MCG) TAB PO SCH (09:40)
--- NOTE | 2020-01-17 14:28 | DIS ---
DATE OF ADMISSION: 01/12/2020 DATE OF DISCHARGE: 01/17/2020 DISCHARGE DISPOSITION: To home. PRIMARY DISCHARGE DIAGNOSES: Acute respiratory failure with hypoxia and hypercapnia, morbid obesity, suspected obstructive sleep apnea, suspected obesity, hypoventilation syndrome, chronic kidney disease stage 3, diabetes mellitus type 2, depression, dyslipidemia. PROCEDURES DONE DURING HOSPITALIZATION: CT angio chest done on the day of admission showed no evidence of PE. There were moderate-sized bilateral pleural effusions. Mild vascular congestion was seen. Blood cultures x2, no growth. H and H of 10 and 32, platelet count 258, MCV 94, white count of 8. Blood gas done on the day of admission showed pH of 7.41, pCO2 of 61, pO2 of 89. Discharge BUN and creatinine are 50 and 1.8. Admitting BUN and creatinine were 48 and 1.6. BNP 624. COVID-19 PCR on 01/12/2020 was negative. DISCHARGE MEDICATIONS: 1. Prednisone 10 mg p.o. daily for another 4 days. 2. Ultram 50 mg p.o. q.8 hourly p.r.n. 3. DuoNeb q.6 hourly p.r.n. 4. Lopressor 12.5 mg twice daily. 5. Imdur extended-release 60 mg p.o. daily. 6. Tresiba 40 units subcu daily. 7. Hydralazine 25 mg p.o. 3 times daily. 8. Lasix 40 mg at 6 a.m. and 2 p.m. 9. Folic acid 1 mg p.o. daily. 10. Fluoxetine 40 mg p.o. daily. 11. Vitamin D3 1000 units p.o. daily. 12. Lipitor 40 mg p.o. q.p.m. 13. Aspirin 81 mg p.o. daily. 14. Brovana 15 mcg nebulizer twice daily. ALLERGIES: NO KNOWN DRUG ALLERGIES. DISCHARGE PLAN: The patient to follow up with Dr. Juan Oseguera in 3 days. She also will need urgent sleep study, for which she needs a referral from primary care physician. BRIEF COURSE DURING HOSPITALIZATION: The patient initially came to ER with complaints of shortness of breath. She was recently hospitalized at [facility] and was discharged home 6 days prior to arrival here. The patient was hypoxic and was initially placed on 2 L nasal cannula. She had to be upgraded to BiPAP as her saturations started to fall off. The patient is morbidly obese and weighs nearly 350 pounds. Her BMI is 57. She likely has suspected obstructive sleep apnea and obesity hypoventilation syndrome. The patient was weaned off BiPAP and was placed on CPAP at night. She has done well with these measures. She already has home oxygen set up at home. The patient wanted a hospital bed in view of her severe deconditioning and bedbound status. Also, the family wanted Wei lift in view of her morbid obesity and bedbound status for mobilization. Her overall prognosis is guarded due to morbid obesity. The patient would benefit from urgent sleep study via referral from primary care physician, Dr. Oseguera's office. She is otherwise hemodynamically stable and will be shortly discharged home. Please note, I have seen and examined the patient on the day of discharge. Job ID: [id number] MTDD
== END 2020-01-17 15:35 | disposition home or self-care (01) | DRG 189 ==
LOC: ERS 10:49 → ERHOLD 14:01 → IMCU/EMU 01-13 00:01 → ONC 01-14 20:21
PROVIDERS: ADMIT Internal Medicine; ATTEND Internal Medicine
PROC: 5A09357 Assistance with Respiratory Ventilation, Less than 24 Consecutive Hours, Continuous Positive Airway Pressure (ICD-10-PCS; principal; 2020-01-12)
DX: J96.01 Acute respiratory failure with hypoxia (principal); E66.2 Morbid (severe) obesity with alveolar hypoventilation; Z68.43 Body mass index [BMI] 50.0-59.9, adult; I13.0 Hypertensive heart and chronic kidney disease with heart failure and stage 1 through stage 4 chronic kidney disease, or unspecified chronic kidney disease; I50.32 Chronic diastolic (congestive) heart failure; N17.9 Acute kidney failure, unspecified; Z20.828 Contact with and (suspected) exposure to other viral communicable diseases; J96.02 Acute respiratory failure with hypercapnia; E11.22 Type 2 diabetes mellitus with diabetic chronic kidney disease; N18.3 Chronic kidney disease, stage 3 (moderate); F32.9 Major depressive disorder, single episode, unspecified; E78.5 Hyperlipidemia, unspecified; M14.679 Charcot's joint, unspecified ankle and foot; Z89.422 Acquired absence of other left toe(s); Z79.899 Other long term (current) drug therapy; Z79.82 Long term (current) use of aspirin; Z79.4 Long term (current) use of insulin
CPT/HCPCS: 36415; 36416; 71045; 71275; 80048; 80053; 81003; 81015; 82550; 82553; 82805; 83605; 83690; 83880; 84484; 85025; 85379; 87040; 93005; 94640; 94660; J1644; J1815; J1940; J2920; J7512; J7620; U0002

== ENCOUNTER 2024-04-22 12:15 | Inpatient (IN) | payer OTHER ==
[2024-04-22] MEDS ORDERED: Acetaminophen 650 MG Suppository PR PRN (14:22)
[2024-04-22] MEDS ORDERED: Non-Formulary Item 1 EACH (Albuterol Sulfate [Proair Digihaler] 90 MCG Aer.Pw.Bas) INH PRN (15:05)
[2024-04-22] MEDS ORDERED: Dextrose 5% in Water 1,000 ML IV PRN (15:08)
[2024-04-22] MEDS ORDERED: Glucagon 1 MG/ML KIT IM PRN (15:08)
[2024-04-22] MEDS ORDERED: Dextrose 50% Abboject 50 ML SYRINGE SLOW IVP PRN (15:08)
[2024-04-22 15:10] VITALS: BMI 68.6
[2024-04-22] MEDS: Heparin 5,000 UNITS/ML VIAL SC SCH (15:55)
[2024-04-22] MEDS: tiZANidine HCl 4 MG TAB PO SCH (15:55)
[2024-04-22 15:56] LABS: Hemoglobin A1c 6.3 % (4.0-6.0)
[2024-04-22 15:57] LABS: Magnesium 2.4 mg/dL (1.6-2.6); Potassium 3.4 mmol/L (3.5-5.1)
[2024-04-22 16:01] LABS: Troponin I 0.033 ng/mL (< 0.028)
[2024-04-22] MEDS: Furosemide 40 MG (4 mL) VIAL SLOW IVP SCH (16:11)
[2024-04-22] MEDS: Spironolactone 25 MG TAB PO SCH (17:30)
[2024-04-22] MEDS: Potassium Chloride 20 MEQ TAB PO SCH (17:30)
[2024-04-22] MEDS: hydrALAZINE 25 MG TAB PO SCH (17:30)
[2024-04-22] MEDS: Mometasone 200 MCG/Formoterol 5 MCG 120 PUFF INHALER INH SCH (19:56)
[2024-04-22] MEDS: Famotidine 20 MG TAB PO SCH (20:46)
[2024-04-22] MEDS: Atorvastatin Calcium 40 MG TAB PO SCH (20:46)
[2024-04-23] MEDS: Acetaminophen 325 MG TAB PO PRN (01:00)
[2024-04-23 04:32] LABS: #Basophils 0.03 10x3/uL (0.0-0.2); %Basophils 0.4 % (0.0-1.0); %Eosinophils 1.7 % (0.0-10.0); %Lymphocytes 19.5 % (21.0-51.0); %Monocytes 8.2 % (0.0-10.0); %Neutrophils 69.9 % (42.0-75.0); Hematocrit 34.5 % (36.0-47.0); Hemoglobin 10.7 g/dL (12.0-16.0); Mean Corpuscular Hemoglobin 30.8 pg (27.0-31.0); Mean Corpuscular Volume 99.4 fL (78.0-98.0); Mean Platelet Volume 9.2 fL (7.4-10.4); Platelet Count 281 10x3/uL (130-400); RBC Distribution Width 17.1 % (11.5-14.5); Red Blood Cell (RBC) Count 3.47 mill/uL (4.20-5.40)
[2024-04-23 04:58] LABS: Anion Gap 14 mmol/L (10-20); BUN (Urea Nitrogen) 57 mg/dL (9.8-20.1); Calc. Creatinine Clearance 79 mL/min (70-130); Calcium 9.1 mg/dL (7.8-10.44); Carbon Dioxide 28 mmol/L (22-29); Chloride 107 mmol/L (98-107); Estimated GFR 26; Glucose 50 mg/dL (70-105); Magnesium 2.3 mg/dL (1.6-2.6); Potassium 3.9 mmol/L (3.5-5.1); Sodium 145 mmol/L (136-145)
[2024-04-23] MEDS: Furosemide 40 MG (4 mL) VIAL SLOW IVP SCH (05:29)
[2024-04-23] MEDS: Metoprolol Tartrate 25 MG TAB PO SCH (08:42)
[2024-04-23] MEDS: Isosorbide Mononitrate 60 MG ER.TAB PO SCH (08:42)
[2024-04-23] MEDS: Folic Acid 1 MG TAB PO SCH (08:42)
[2024-04-23] MEDS: FLUoxetine HCl 20 MG CAP PO SCH (08:42)
[2024-04-23] MEDS: Aspirin 81 mg Enteric Coated Tablet PO SCH (08:43)
[2024-04-23] MEDS: Nystatin Cream 30 GM TUBE TOP SCH (08:43)
[2024-04-23] MEDS: Cholecalciferol 1,000 UNITS (25 MCG) TAB PO SCH (08:43)
[2024-04-23] MEDS: Ipratropium/Albuterol 3 ML NEB NEB PRN (09:32)
[2024-04-23] MEDS: tiZANidine HCl 4 MG TAB PO PRN (17:57)
[2024-04-23] MEDS: FLU (Fluarix Triv) TS24-25(6MOS UP)/PF 45 MCG/0.5 ML Syringe IM ONE (23:24)
[2024-04-24 08:32] LABS: Anion Gap 15 mmol/L (10-20); BUN (Urea Nitrogen) 61 mg/dL (9.8-20.1); Calc. Creatinine Clearance 69 mL/min (70-130); Calcium 9.2 mg/dL (7.8-10.44); Carbon Dioxide 26 mmol/L (22-29); Chloride 105 mmol/L (98-107); Estimated GFR 22; Glucose 148 mg/dL (70-105); Potassium 4.3 mmol/L (3.5-5.1); Sodium 142 mmol/L (136-145)
[2024-04-24 09:06] LABS: Free T4 (Free Thyroxine) 1.04 ng/dL (0.70-1.48)
[2024-04-24] MEDS: Albumin 25% 25 GM (100 mL) BOT IVPB SCH (11:11)
[2024-04-24 12:38] LABS: Phosphorus 4.1 mg/dL (2.3-4.7)
[2024-04-24] MEDS: Furosemide 20 MG (2 mL) VIAL SLOW IVP SCH (13:40)
[2024-04-24] MEDS ORDERED: Furosemide 40 MG (4 mL) VIAL SLOW IVP SCH (14:00)
[2024-04-24 15:52] LABS: Creatinine, Urine 49.48 mg/dL (47-110)
[2024-04-24] MEDS: Ondansetron PF 4 MG/2 ML Vial IVP PRN (21:36)
[2024-04-25 04:57] LABS: Anion Gap 17 mmol/L (10-20); BUN (Urea Nitrogen) 64 mg/dL (9.8-20.1); Calc. Creatinine Clearance 68 mL/min (70-130); Calcium 9.3 mg/dL (7.8-10.44); Carbon Dioxide 28 mmol/L (22-29); Chloride 104 mmol/L (98-107); Estimated GFR 21; Glucose 174 mg/dL (70-105); Potassium 4.5 mmol/L (3.5-5.1); Sodium 144 mmol/L (136-145)
[2024-04-25] MEDS: Calcitriol 0.25 MCG CAP PO SCH (09:08)
[2024-04-26 04:53] LABS: Anion Gap 15 mmol/L (10-20); BUN (Urea Nitrogen) 69 mg/dL (9.8-20.1); Calc. Creatinine Clearance 66 mL/min (70-130); Calcium 9.4 mg/dL (7.8-10.44); Carbon Dioxide 28 mmol/L (22-29); Chloride 104 mmol/L (98-107); Estimated GFR 21; Glucose 237 mg/dL (70-105); Potassium 4.6 mmol/L (3.5-5.1); Sodium 142 mmol/L (136-145)
[2024-04-26] MEDS: Insulin Glargine 30 UNITS/0.3 ML VIAL SC SCH (08:53)
[2024-04-26] MEDS: Insulin Lispro 100 UNIT/ML 10 ML VIAL SC PRN (11:59)
[2024-04-27 11:43] LABS: Chloride 104 mmol/L (98-107); Potassium 4.3 mmol/L (3.5-5.1); Sodium 141 mmol/L (136-145)
[2024-04-27 11:44] LABS: Calcium 9.3 mg/dL (7.8-10.44); Glucose 154 mg/dL (70-105)
[2024-04-27 11:46] LABS: Anion Gap 11 mmol/L (10-20); Carbon Dioxide 30 mmol/L (22-29)
[2024-04-27 11:48] LABS: BUN (Urea Nitrogen) 64 mg/dL (9.8-20.1); Calc. Creatinine Clearance 74 mL/min (70-130); Estimated GFR 24
[2024-04-28] MEDS: Ondansetron ODT 4 MG TAB PO PRN (04:51)
[2024-04-28 08:49] LABS: #Basophils 0.06 10x3/uL (0.0-0.2); %Basophils 0.7 % (0.0-1.0); %Eosinophils 2.6 % (0.0-10.0); %Lymphocytes 17.4 % (21.0-51.0); %Monocytes 10.2 % (0.0-10.0); %Neutrophils 68.7 % (42.0-75.0); Hematocrit 37.7 % (36.0-47.0); Hemoglobin 11.2 g/dL (12.0-16.0); Mean Corpuscular HGB CONC 29.7 g/dL (32.0-36.0); Mean Corpuscular Hemoglobin 30.1 pg (27.0-31.0); Mean Corpuscular Volume 101.3 fL (78.0-98.0); Mean Platelet Volume 9.5 fL (7.4-10.4); Platelet Count 258 10x3/uL (130-400); RBC Distribution Width 16.5 % (11.5-14.5); Red Blood Cell (RBC) Count 3.72 mill/uL (4.20-5.40)
[2024-04-28 09:06] LABS: Anion Gap 13 mmol/L (10-20); BUN (Urea Nitrogen) 64 mg/dL (9.8-20.1); Calc. Creatinine Clearance 73 mL/min (70-130); Carbon Dioxide 29 mmol/L (22-29); Chloride 103 mmol/L (98-107); Estimated GFR 24; Glucose 113 mg/dL (70-105); Potassium 4.4 mmol/L (3.5-5.1); Sodium 141 mmol/L (136-145)
[2024-04-28 17:12] VITALS: BMI 66.6
[2024-04-29 11:29] VITALS: BP 140/66; TEMP 97.8
== END 2024-04-29 14:27 | disposition home or self-care (01) | DRG 291 ==
LOC: 2NO 13:59
PROVIDERS: ADMIT Internal Medicine; ATTEND Hospitalist
DX: I13.0 Hypertensive heart and chronic kidney disease with heart failure and stage 1 through stage 4 chronic kidney disease, or unspecified chronic kidney disease (principal); I50.31 Acute diastolic (congestive) heart failure; J96.02 Acute respiratory failure with hypercapnia; J96.01 Acute respiratory failure with hypoxia; N18.4 Chronic kidney disease, stage 4 (severe); Z68.44 Body mass index [BMI] 60.0-69.9, adult; N17.9 Acute kidney failure, unspecified; E66.2 Morbid (severe) obesity with alveolar hypoventilation; N25.81 Secondary hyperparathyroidism of renal origin; E11.22 Type 2 diabetes mellitus with diabetic chronic kidney disease; J45.909 Unspecified asthma, uncomplicated; H26.9 Unspecified cataract; E11.649 Type 2 diabetes mellitus with hypoglycemia without coma; L30.4 Erythema intertrigo; Z89.412 Acquired absence of left great toe; Z88.5 Allergy status to narcotic agent; Z79.4 Long term (current) use of insulin; Z79.82 Long term (current) use of aspirin; Z79.899 Other long term (current) drug therapy; I27.20 Pulmonary hypertension, unspecified
CPT/HCPCS: 36415; 36416; 80048; 82040; 82306; 82570; 83036; 83735; 83970; 84100; 84156; 84439; 84443; 84481; 85025; 93306; 94640; 97139; J1644; J1815; J1940; J2405; J7620; P9047; Q0162

== ENCOUNTER 2024-05-25 19:40 | Inpatient (IN) | payer OTHER ==
[2024-05-25 20:09] VITALS: BMI 51.8
[2024-05-25] MEDS ORDERED: Ipratropium/Albuterol 3 ML NEB NEB PRN (21:36)
[2024-05-25] MEDS ORDERED: Senokot S 8.6-50 MG TAB PO PRN (21:38)
[2024-05-25] MEDS ORDERED: Ondansetron PF 4 MG/2 ML Vial IVP PRN (21:38)
[2024-05-25] MEDS ORDERED: Acetaminophen 650 MG Suppository PR PRN (21:38)
[2024-05-25] MEDS ORDERED: Glucagon 1 MG/ML KIT IM PRN (21:38)
[2024-05-25] MEDS ORDERED: Dextrose 50% Abboject 50 ML SYRINGE SLOW IVP PRN (21:38)
[2024-05-25] MEDS ORDERED: Ondansetron ODT 4 MG TAB PO PRN (21:38)
[2024-05-25] MEDS ORDERED: Dextrose 5% in Water 1,000 ML IV PRN (21:38)
[2024-05-25] MEDS ORDERED: Albuterol 200 PUFF (6.7GM INHALER) INH PRN (21:47)
[2024-05-25] MEDS: Sodium Chloride 0.9% 500 ML IV SCH (21:51)
[2024-05-25] MEDS: Insulin Lispro 100 UNIT/ML 10 ML VIAL SC PRN (21:52)
[2024-05-25] MEDS ORDERED: Nystatin Powder 15 GM BOT TOP PRN (22:25)
[2024-05-25] MEDS: Metoprolol Tartrate 25 MG TAB PO SCH (22:45)
[2024-05-25] MEDS: tiZANidine HCl 4 MG TAB PO PRN (23:48)
[2024-05-26 06:06] LABS: #Basophils 0.06 10x3/uL (0.0-0.2); %Basophils 0.5 % (0.0-1.0); %Lymphocytes 28.4 % (21.0-51.0); %Monocytes 7.2 % (0.0-10.0); %Neutrophils 61.6 % (42.0-75.0); Anion Gap 17 mmol/L (10-20); BUN (Urea Nitrogen) 68 mg/dL (9.8-20.1); Calc. Creatinine Clearance 51 mL/min (70-130); Calcium 9.8 mg/dL (7.8-10.44); Carbon Dioxide 25 mmol/L (22-29); Chloride 98 mmol/L (98-107); Estimated GFR 20; Glucose 276 mg/dL (70-105); Hematocrit 45.3 % (36.0-47.0); Hemoglobin 14.3 g/dL (12.0-16.0); Mean Corpuscular HGB CONC 31.6 g/dL (32.0-36.0); Mean Corpuscular Hemoglobin 30.4 pg (27.0-31.0); Mean Corpuscular Volume 96.4 fL (78.0-98.0); Mean Platelet Volume 9.9 fL (7.4-10.4); Platelet Count 299 10x3/uL (130-400); Potassium 4.4 mmol/L (3.5-5.1); RBC Distribution Width 17.3 % (11.5-14.5); Sodium 136 mmol/L (136-145)
[2024-05-26] MEDS: Mometasone 200 MCG/Formoterol 5 MCG 120 PUFF INHALER INH SCH (07:36)
[2024-05-26] MEDS: Heparin 5,000 UNITS/ML VIAL SC SCH (08:33)
[2024-05-26] MEDS: Folic Acid 1 MG TAB PO SCH (08:33)
[2024-05-26] MEDS: Metoprolol Tartrate 25 MG TAB PO SCH (08:33)
[2024-05-26] MEDS: Isosorbide Mononitrate 30 MG ER.TAB PO SCH (08:33)
[2024-05-26] MEDS: Insulin Glargine 30 UNITS/0.3 ML VIAL SC SCH ×2 (08:34→21:57)
[2024-05-26] MEDS: FLUoxetine HCl 20 MG CAP PO SCH (08:34)
[2024-05-26] MEDS: Aspirin 81 mg Enteric Coated Tablet PO SCH (08:34)
[2024-05-26] MEDS ORDERED: cefTRIAXone\\ROCEPHIN 1 GM in Sodium Chloride 0.9% 100 ML IVPB SCH (09:00)
[2024-05-26] MEDS: Clindamycin/D5W 600 MG in Premix 1 BAG IVPB SCH (11:30)
[2024-05-26] MEDS: Insulin Lispro 100 UNIT/ML 10 ML VIAL SC PRN (12:25)
[2024-05-26 21:34] VITALS: BMI 51.8
[2024-05-26] MEDS: Acetaminophen 325 MG TAB PO PRN (21:57)
[2024-05-27 06:14] LABS: #Basophils 0.05 10x3/uL (0.0-0.2); %Basophils 0.5 % (0.0-1.0); %Eosinophils 2.4 % (0.0-10.0); %Lymphocytes 22.4 % (21.0-51.0); %Monocytes 7.2 % (0.0-10.0); %Neutrophils 67.1 % (42.0-75.0); Hematocrit 39.8 % (36.0-47.0); Hemoglobin 12.6 g/dL (12.0-16.0); Mean Corpuscular HGB CONC 31.7 g/dL (32.0-36.0); Mean Corpuscular Hemoglobin 31.1 pg (27.0-31.0); Mean Corpuscular Volume 98.3 fL (78.0-98.0); Mean Platelet Volume 9.7 fL (7.4-10.4); Platelet Count 259 10x3/uL (130-400); RBC Distribution Width 17.3 % (11.5-14.5); Red Blood Cell (RBC) Count 4.05 mill/uL (4.20-5.40)
[2024-05-27 06:35] LABS: Anion Gap 13 mmol/L (10-20); BUN (Urea Nitrogen) 63 mg/dL (9.8-20.1); Calc. Creatinine Clearance 51 mL/min (70-130); Calcium 9.1 mg/dL (7.8-10.44); Carbon Dioxide 29 mmol/L (22-29); Chloride 97 mmol/L (98-107); Estimated GFR 20; Glucose 261 mg/dL (70-105); Potassium 3.9 mmol/L (3.5-5.1); Sodium 135 mmol/L (136-145)
[2024-05-27] MEDS: Insulin Lispro 100 UNIT/ML 10 ML VIAL SC PRN (11:47)
[2024-05-28 08:02] VITALS: TEMP 98.1
[2024-05-28 08:49] LABS: Anion Gap 17 mmol/L (10-20); BUN (Urea Nitrogen) 56 mg/dL (9.8-20.1); Calc. Creatinine Clearance 52 mL/min (70-130); Calcium 8.9 mg/dL (7.8-10.44); Carbon Dioxide 25 mmol/L (22-29); Chloride 101 mmol/L (98-107); Estimated GFR 22; Glucose 171 mg/dL (70-105); Phosphorus 3.7 mg/dL (2.3-4.7); Potassium 4.3 mmol/L (3.5-5.1); Sodium 139 mmol/L (136-145)
[2024-05-28 12:07] VITALS: BP 143/70
[2024-05-29] MEDS ORDERED: Isosorbide Mononitrate 60 MG ER.TAB PO SCH (09:00)
[2024-05-30] MEDS ORDERED: Calcitriol 0.25 MCG CAP PO SCH (09:00)
== END 2024-05-28 13:58 | disposition home or self-care (01) | DRG 683 ==
LOC: T4-A 19:40 → OBSVTOIN 21:42
PROVIDERS: ADMIT Internal Medicine; ATTEND Hospitalist
DX: N17.9 Acute kidney failure, unspecified (principal); I13.0 Hypertensive heart and chronic kidney disease with heart failure and stage 1 through stage 4 chronic kidney disease, or unspecified chronic kidney disease; I50.32 Chronic diastolic (congestive) heart failure; Z68.42 Body mass index [BMI] 45.0-49.9, adult; E11.22 Type 2 diabetes mellitus with diabetic chronic kidney disease; L03.031 Cellulitis of right toe; N18.4 Chronic kidney disease, stage 4 (severe); G47.33 Obstructive sleep apnea (adult) (pediatric); J45.909 Unspecified asthma, uncomplicated; E78.5 Hyperlipidemia, unspecified; E66.01 Morbid (severe) obesity due to excess calories; F32.A Depression, unspecified; E11.65 Type 2 diabetes mellitus with hyperglycemia; H54.8 Legal blindness, as defined in USA; D64.9 Anemia, unspecified; Z88.5 Allergy status to narcotic agent; Z89.412 Acquired absence of left great toe
CPT/HCPCS: 36415; 36416; 80048; 83970; 84100; 85025; 97139; J1644; J1815; J3490; J7030